=== PATIENT | male | born 1945 | race Hispanic/Latino ===

== ENCOUNTER 2017-02-03 08:34 | Inpatient (IN) | payer MEDICARE, OTHER ==
[2017-02-03 08:39] VITALS: BMI 29.9
--- NOTE | 2017-02-03 08:39 | ED PDOC ---
Arrival/HPI - General Time Seen by Provider: 02/03/17 08:38 Historian: Patient - History of Present Illness Narrative History of Present Illness (Text): 02/03/17 08:38 A 71 year old male, whose past medical history includes cardiac stent, 75%heart block, CHF on lasix, diabetes, hypertension and stage 5 kidney disease, brought [place] the emergency department [place] for chest pain over the past few days. Patient reports taking nitroglycerin, with mild relief until symptoms worsened causing a burning sensation. Patient was seen by physician on cruise ship who treated him with Aspirin, Plavix, Heparin and Nitro drip. Patient is currently asymptomatic and denies any pain. Lab report showed a Troponin of 0.03ng/ml, hemoglobin of 9.4 and creatinine of 7.5. It was also noted patients potassium level was slightly elevated to 5.6 which he states is normal to his baseline. Patient notes dyspnea on exertion but denies any fever, chills, nausea , vomiting, abdominal pain or any other complaints. 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 Time/Duration: Other (few days) Symptom Course: Worsening Quality: Other Context: Other Past Medical History - Provider Review Nursing Documentation Reviewed: Yes Family/Social History - Physician Review Nursing Documentation Reviewed: Yes Family/Social History: No Known Family HX Allergies/Home Meds Allergies/Adverse Reactions: Allergies doxycycline Allergy (Verified 02/03/17 09:01) ANAPHYLAXIS clarithromycin [From Biaxin] Adverse Reaction (Verified 02/03/17 10:25) RASH diclofenac Adverse Reaction (Verified 02/03/17 10:25) RASH diltiazem [From Dilacor XR] Adverse Reaction (Verified 02/03/17 10:25) RASH enalaprilat [From Vasotec] Adverse Reaction (Verified 02/03/17 10:25) RASH erythromycin base [From E-Mycin] Adverse Reaction (Verified 02/03/17 10:25) SWELLING felodipine [From Plendil] Adverse Reaction (Verified 02/03/17 10:25) RASH hydroxyzine Adverse Reaction (Verified 02/03/17 10:25) RASH polystyrene sulfonate [From Kayexalate] Adverse Reaction (Verified 02/03/17 10: 25) SWELLING pseudoephedrine [From Sudafed] Adverse Reaction (Verified 02/03/17 10:25) SWELLING sevelamer [From Renagel] Adverse Reaction (Verified 02/03/17 10:25) RASH tramadol [From Ultram] Adverse Reaction (Verified 02/03/17 10:25) RASH triamterene Adverse Reaction (Verified 02/03/17 10:25) RASH valsartan [From Diovan] Adverse Reaction (Verified 02/03/17 10:25) RASH Home Medications: Home Meds Medication Instructions Recorded Confirmed Allopurinol [Zyloprim] 100 mg PO DAILY 02/03/17 02/03/17 Cetirizine HCl [Allergy Relief] 10 mg PO DAILY 02/03/17 02/03/17 Cholecalciferol (Vitd3)/Vit K2 [D3 1,000 units PO DAILY 02/03/17 02/03/17 + K2 Dots 1,000 Units Tab] Clopidogrel [Plavix] 75 mg PO DAILY 02/03/17 02/03/17 Colchicine [Colcrys] 1 tab PO DAILY 02/03/17 02/03/17 Darbepoetin Jovani in Polysorbat 1 mcg IM ONCE 02/03/17 02/03/17 [Aranesp] DiphenhydrAMINE [Benadryl] 1 cap PO HS 02/03/17 02/03/17 Doxazosin [Cardura] 1 tab PO DAILY 02/03/17 02/03/17 Ferrous Sulfate [Feosol] 325 mg PO MWF 02/03/17 02/03/17 Fluticasone Propionate [Flonase] 2 spr NS DAILY 02/03/17 02/03/17 Furosemide [Lasix] 40 mg PO QOTHERDAY 02/03/17 02/03/17 Glimepiride [Amaryl] 0.5 mg PO DAILY 02/03/17 02/03/17 Hydralazine HCl [Hydralazine HCl] 1 tab PO TID 02/03/17 02/03/17 Isosorbide Mononitrate [Isosorbide 30 mg PO DAILY 02/03/17 02/03/17 Mononitrate ER] Lanthanum [Fosrenol] 500 mg PO BID 02/03/17 02/03/17 Levothyroxine Sodium [Levoxyl] 100 mcg PO DAILY 02/03/17 02/03/17 Metoprolol Succinate [Toprol XL] 25 mg PO DAILY 02/03/17 02/03/17 Nitroglycerin [Nitrostat] 1 tab SL Q5MIN PRN MDD x 3 doses 02/03/17 02/03/17 Pantoprazole Sodium [Protonix] 40 mg PO BID 02/03/17 02/03/17 Paricalcitol [Zemplar] 1 mcg PO QOTHERDAY 02/03/17 02/03/17 Polyethylene Glycol 3350 [Miralax] 17 gm PO DAILY 02/03/17 02/03/17 Pravastatin Sodium [Pravachol] 20 mg PO HS 02/03/17 02/03/17 Triamcinolone 0.1% [Triamcinolone 1 applic TOP PRN PRN 02/03/17 02/03/17 0.1% Cream] Vitamin E [Vitamin E] 1,000 units PO DAILY 02/03/17 02/03/17 cloNIDine [clonidine HCl] 0.2 mg PO Q6 02/03/17 02/03/17 Review of Systems - Physician Review All systems were reviewed & negative as marked: Yes - Review of Systems Constitutional: absent: Fevers, Night Sweats Cardiovascular: Chest Pain, ZAVALETA Gastrointestinal: absent: Abdominal Pain, Nausea, Vomiting Physical Exam Vital Signs Reviewed: Yes Vital Signs Temp Pulse Pulse Resp BP BP Pulse Ox 02/03/17 10:54 69 20 147/81 96 02/03/17 09:33 62 15 152/70 H 98 02/03/17 09:00 65 159/92 H 02/03/17 08:50 66 159/92 H 02/03/17 08:38 98.9 F 64 16 159/92 H 98 Temperature: Afebrile Blood Pressure: Hypertensive Pulse: Regular Respiratory Rate: Normal Appearance: Positive for: Well-Appearing, Non-Toxic, Comfortable Pain Distress: None Mental Status: Positive for: Alert and Oriented X 3 - Systems Exam Head: Present: Atraumatic, Normocephalic Pupils: Present: PERRL Extroacular Muscles: Present: EOMI Conjunctiva: Present: Normal Mouth: Present: Moist Mucous Membranes Neck: Present: Normal Range of Motion Respiratory/Chest: Present: Clear to Auscultation, Good Air Exchange. No: Respiratory Distress, Accessory Muscle Use Cardiovascular: Present: Regular Rate and Rhythm, Normal S1, S2. No: Murmurs Abdomen: Present: Normal Bowel Sounds. No: Tenderness, Distention, Peritoneal Signs Back: Present: Normal Inspection Upper Extremity: Present: NORMAL PULSES, Other (Left AV shunt, positive thrill and bruit). No: Cyanosis, Edema Lower Extremity: Present: Edema (trace edema bilaterally), NORMAL PULSES, Neurovascularly Intact. No: CALF TENDERNESS, Temperature Abnormalties Neurological: Present: GCS=15, CN II-XII Intact, Speech Normal Skin: Present: Warm, Dry, Normal Color. No: Rashes Psychiatric: Present: Alert, Oriented x 3, Normal Insight, Normal Concentration Medical Decision Making ED Course and Treatment: 02/03/17 08:38 Impression: A 71 year old male with chest pain, currently asymptomatic. On exam, trace lower extremity edema. Differential Diagnosis included but are not limited to: Unstable angina, rule out ACS/NTEMI Plan: -- Chest xray -- EKG -- Labs -- Urinalysis -- Nitroglycerin drip -- Reassess and disposition Progress Notes: EKG shows NSR at 72 BPM with T-wave inversions in lateral leads. Interpreted by me. 02/03/17 09:25 Patient reports he is allergic to kayexalate. Will order Dextrose and Insulin for his hyperkalemia. His baseline he states is 5.6-5.7. 02/03/17 11:00 Patient with elevated troponin. Did not present with CP to the ED but had CP last night and earlier this morning that improved with the nitro drip which he currently is on. Discussed case with Dr. Dahl who is covering for Dr. Wilkinson. He requested Dr. Mccoy for Cardiology and Dr. Trejo for Nephrology. Discussed case with Dr. Galdamez, [employer], who is covering for Dr. Trejo, will come to evaluate patient. He requested recommendation from Cardiology. Discussed case with Dr. Lu who is covering for Dr. Mccoy. He states that patient needs to be in the ICU and he will consult. He states he will also discuss the case with Dr. Galdamez. I reviewed medications already given and he agrees with plan. - Critical Care Critical Care Minutes: 45 minutes - Lab Interpretations Lab Results: 02/03/17 08:58 02/03/17 08:58 Lab Results 02/03/17 09:51: POC Glucose (mg/dL) 194 H 02/03/17 09:15: Urine Color Light yellow, Urine Appearance Clear, Urine pH 6.0, Ur Specific [place] 1.020, Urine Protein >=300 H, Urine Glucose (UA) 100 H, Urine Ketones Negative, Urine Blood Negative, Urine Nitrate Negative, Urine Bilirubin Negative, Urine Urobilinogen 0.2, Ur Leukocyte Esterase Negative, Urine RBC 0 - 2, Urine WBC 0 - 2, Ur Epithelial Cells 0 - 2, Urine Bacteria Trace 02/03/17 09:04: Blood Type O POSITIVE, Antibody Screen Negative, BBK History Checked No verified bt 02/03/17 08:58: PT 11.3, INR 1.05, APTT 39.1 H 02/03/17 08:58: Sodium 141, Potassium 5.8 H*, Chloride 109 H, Carbon Dioxide 18 L, Anion Gap 20, BUN 86 H, Creatinine 7.1 H, Est GFR ( Amer) 9, Est GFR ( Non-Af Amer) 8, Random Glucose 85, Calcium 9.3, Magnesium 1.6 L, Total Bilirubin 0.6, AST 33, ALT 38, Alkaline Phosphatase 74, Lactate Dehydrogenase 453, Total Creatine Kinase 156, Troponin I 0.21 H*, NT-Pro-B Natriuret Pep 39499 H, Total Protein 6.4, Albumin 3.5, Globulin 2.9, Albumin/Globulin Ratio 1.2 02/03/17 08:58: WBC 4.6, RBC 2.76 L, Hgb 8.8 L, Hct 26.0 L, MCV 94.2, MCH 31.9, MCHC 33.8, RDW 14.9 H, Plt Count 207, MPV 9.8, Gran % 65.5, Lymph % (Auto) 19.0 L, [place] % (Auto) 9.6 H, Eos % (Auto) 5.0, Baso % (Auto) 0.9, Gran # 3.01, Lymph # 0.9 L, [place] # 0.4, Eos # 0.2, Baso # 0.04 - RAD Interpretation Radiology Orders: 02/03/17 08:46 CHEST PORTABLE [RAD] Stat - Medication Orders Current Medication Orders: Nitroglycerin/Dextrose (Nitroglycerin 50 Mg/250 Ml D5w) 50 mg in 250 mls @ 1.98 mls/hr IV .Q24H PRN; Protocol; 6.6 MCG/MIN PRN Reason: pain Last Admin: 02/03/17 09:00 Dose: 1.98 mls/hr eMAR Start Stop Document 02/03/17 09:00 CNR (Rec: 02/03/17 09:14 CNR [id number]) Intravenous Solution Start Date 02/03/17 Start Time 09:00 MAR Pulse and Blood Pressure Document 02/03/17 09:00 CNR (Rec: 02/03/17 09:14 CNR [id number]) Pulse Pulse Rate (60-90) 65 Blood Pressure Blood Pressure (100/60-150/90) 159/92 Discontinued Medications Dextrose (Dextrose 50% Inj) 50 ml IVP STAT STA Stop: 02/03/17 09:27 Last Admin: 02/03/17 09:37 Dose: 50 ml IVP Administration Document 02/03/17 09:37 CNR (Rec: 02/03/17 09:40 CNR [id number]) Charges for Administration # of IVP Administrations 1 Insulin Human Regular (Humulin R) 10 units IVP STAT STA Stop: 02/03/17 09:27 Last Admin: 02/03/17 09:40 Dose: 10 units IVP Administration Document 02/03/17 09:40 CNR (Rec: 02/03/17 09:41 CNR [id number]) Charges for Administration # of IVP Administrations 1 - Scribe Statement The provider has reviewed the documentation as recorded by the Kenny Brannon Provider Scribe Attestation: All medical record entries made by the Scribe were at my direction and personally dictated by me. I have reviewed the chart and agree that the record accurately reflects my personal performance of the history, physical exam, medical decision making, and the department course for this patient. I have also personally directed, reviewed, and agree with the discharge instructions and disposition. Disposition/Present on Arrival - Present on Arrival Any Indicators Present on Arrival: No - Disposition Have Diagnosis and Disposition been Completed?: Yes Diagnosis: NSTEMI (non-ST elevated myocardial infarction), Renal failure Disposition: HOSPITALIZED Disposition Time: 11:05 Patient Plan: ICU Condition: CRITICAL
[2017-02-03 09:03] LABS: BASO # 0.04 K/mm3 (0.0-2.0); BASO % 0.9 % (0.0-3.0); EOS # 0.2 (0.0-0.7); GRAN # 3.01 (1.4-6.5); GRAN % 65.5 % (50.0-68.0); LYMPH # 0.9 (1.2-3.4); MEAN CELL VOLUME 94.2 fl (80.0-105.0); MEAN CORPUSCULAR HEMOGLOBIN 31.9 pg (25.0-35.0); MEAN CORPUSCULAR HGB CONC 33.8 g/dl (31.0-37.0); MEAN PLATELET VOLUME 9.8 fl (7.0-11.0); MONO # 0.4 (0.1-0.6); MONO % 9.6 % (1.0-6.0); RED CELL DISTRIBUTION WIDTH 14.9 % (11.5-14.5); WHITE BLOOD COUNT 4.6 10^3/ul (4.5-11.0)
[2017-02-03] MEDS ORDERED: Nitroglycerin 50mg in D5W 50 MG/250 ML BOTTLE IV PRN ×2 (09:08→16:25)
[2017-02-03 09:14] LABS: ALB/GLOB RATIO 1.2 (1.1-1.8); BILIRUBIN,TOTAL 0.6 mg/dL (0.2-1.3); CALCIUM 9.3 mg/dL (8.4-10.5); MAGNESIUM 1.6 mg/dL (1.7-2.2); TOTAL PROTEIN 6.4 g/dL (5.8-8.3)
[2017-02-03 09:18] LABS: POTASSIUM 5.8 mmol/L (3.6-5.0)
[2017-02-03 09:21] LABS: URINE BILIRUBIN NEGATIVE (NEGATIVE); URINE BLOOD NEGATIVE (NEGATIVE); URINE GLUCOSE (UA) 100 mg/dL (NEGATIVE); URINE KETONE NEGATIVE (NEGATIVE); URINE LEUKOCYTE ESTERASE NEGATIVE Leu/uL (NEGATIVE); URINE PROTEIN >=300 mg/dL (<30 mg/dL); URINE UROBILINOGEN 0.2 E.U./dL (<1 E.U./dL)
[2017-02-03 09:21] LABS: INR 1.05 (0.93-1.08); PARTIAL THROMBOPLASTIN TIME 39.1 Seconds (23.7-30.8)
[2017-02-03 09:22] LABS: URINE APPEARANCE CLEAR (CLEAR); URINE COLOR LIGHT YELLOW (YELLOW)
[2017-02-03] MEDS ORDERED: Dextrose 50% SYRINGE Inj (50 ml) IVP STA ×2 (09:26→11:32)
[2017-02-03] MEDS ORDERED: Insulin Regular 1 UNITS/0.01 ML ML IVP STA (09:26)
[2017-02-03 09:27] LABS: TROPONIN I 0.21 ng/mL
[2017-02-03 09:38] LABS: URINE BACTERIA TRACE (NEG); URINE EPITHELIAL CELLS 0 - 2 /hpf (0-5); URINE RBC 0 - 2 /hpf (0-2); URINE WBC 0 - 2 /hpf (0-6)
--- NOTE | 2017-02-03 10:22 | RAD ---
HISTORY: Chest pain. Portable study 09:00 COMPARISON: No prior. FINDINGS: LUNGS: No active pulmonary disease. PLEURA: No significant pleural effusion identified, no pneumothorax apparent. CARDIOVASCULAR: Cardiomegaly, mild CHF. OSSEOUS STRUCTURES: No significant abnormalities. VISUALIZED UPPER ABDOMEN: Normal. OTHER FINDINGS: None. IMPRESSION: Acute CHF. Concordant results with the preliminary interpretation rendered by the emergency department physician procedure.
[2017-02-03] MEDS ORDERED: Lidocaine 2% Inj (20ml) ONE (11:32)
[2017-02-03] MEDS ORDERED: Midazolam 2 MG/2 ML VIAL ONE (11:32)
[2017-02-03] MEDS ORDERED: Phenylephrine 10 mg/ml Inj ONE (11:32)
[2017-02-03] MEDS ORDERED: Iohexol 350mgl/ml 50 ML ONE (11:33)
[2017-02-03] MEDS ORDERED: Iodixanol 320 MG/ML 100 ML BOTTLE IV ONE (11:33)
[2017-02-03] MEDS ORDERED: Iodixanol 320 MG/ML 200 ML BOTTLE IV ONE (11:33)
[2017-02-03] MEDS ORDERED: Nitroglycerin 50mg in D5W 50 MG/250 ML BOTTLE IV ONE (11:33)
[2017-02-03] MEDS ORDERED: Morphine 2 mg/ml ISec ONE ×2 (12:18→12:28)
--- NOTE | 2017-02-03 12:50 | CP.PCM.CON ---
History of Present Illness - History of Present Illness History of Present Illness: Consult for ARF HPI: 71 yo M w/ pmh of CKD 5/ HTN/ DM / Anemia that presented for CP. He was apparently coming back from cruise when he was having chest discomfort associated w/ some naussea and diaphoresis. He was treated w/ asa , plavix and nitro and transferred to [facility]. In [facility] he was found to have dynamic EKG changes and a troponin. A code heart was ultimately called. He has a history of advanced CKD that has been treated medically. He denies any uremic type of symptoms. He states his K is always in the mid 5 range. He had a LUAF placed about 2 years ago but not used. ROS: a full detailed ROS is negative except as in my HPI Famhx: + HTN sochx: + smoke history, denies ivdu Past Patient History - Infectious Disease Hx of Infectious Diseases: None - Past Social History Smoking Status: Current Some Days Smoker - CARDIAC Hx Hypertension: Yes - RENAL Hx Chronic Kidney Disease: Yes (stage 5) - ENDOCRINE/METABOLIC Hx Diabetes Mellitus Type 2: Yes - HEMATOLOGICAL/ONCOLOGICAL Hx Anemia: Yes - PSYCHIATRIC Hx Substance Use: No - SURGICAL HISTORY Hx Cardiac Catheterization: Yes (2005) - ANESTHESIA Hx Anesthesia: No Hx Anesthesia Reactions: No Meds Allergies/Adverse Reactions: Allergies Allergy/AdvReac Type Severity Reaction Status Date / Time doxycycline Allergy ANAPHYLAXIS Verified 02/03/17 09:01 clarithromycin [From Biaxin] AdvReac RASH Verified 02/03/17 10:25 diclofenac AdvReac RASH Verified 02/03/17 10:25 diltiazem [From Dilacor XR] AdvReac RASH Verified 02/03/17 10:25 enalaprilat [From Vasotec] AdvReac RASH Verified 02/03/17 10:25 erythromycin base AdvReac SWELLING Verified 02/03/17 10:25 [From E-Mycin] felodipine [From Plendil] AdvReac RASH Verified 02/03/17 10:25 hydroxyzine AdvReac RASH Verified 02/03/17 10:25 polystyrene sulfonate AdvReac SWELLING Verified 02/03/17 10:25 [From Kayexalate] pseudoephedrine AdvReac SWELLING Verified 02/03/17 10:25 [From Sudafed] sevelamer [From Renagel] AdvReac RASH Verified 02/03/17 10:25 tramadol [From Ultram] AdvReac RASH Verified 02/03/17 10:25 triamterene AdvReac RASH Verified 02/03/17 10:25 valsartan [From Diovan] AdvReac RASH Verified 02/03/17 10:25 - Medications Medications: Current Medications Nitroglycerin/Dextrose (Nitroglycerin 50 Mg/250 Ml D5w) 50 mg in 250 mls @ 1.98 mls/hr IV .Q24H PRN; Protocol; 6.6 MCG/MIN PRN Reason: pain Last Admin: 02/03/17 09:00 Dose: 1.98 mls/hr Physical Exam - Constitutional Appears: No Acute Distress - Head Exam Head Exam: ATRAUMATIC - Eye Exam Eye Exam: Normal appearance - ENT Exam ENT Exam: Normal Exam - Neck Exam Neck exam: Positive for: Normal Inspection - Respiratory Exam Additional comments: dec bs at bases - Cardiovascular Exam Cardiovascular Exam: +S1, +S2 - GI/Abdominal Exam GI & Abdominal Exam: Normal Bowel Sounds - Extremities Exam Additional comments: 2+ edema - Neurological Exam Neurological exam: Alert, Oriented x3 - Psychiatric Exam Psychiatric exam: Normal Affect - Skin Skin Exam: Normal Color Results - Vital Signs Recent Vital Signs: Last Vital Signs Temp 98.9 F 02/03/17 08:38 Pulse 79 02/03/17 11:42 Resp 15 02/03/17 11:42 BP 155/69 H 02/03/17 11:42 Pulse Ox 98 02/03/17 11:42 - Labs Result Diagrams: 02/03/17 08:58 02/03/17 08:58 Labs: Laboratory Results - last 24 hr 02/03/17 02/03/17 02/03/17 08:58 08:58 08:58 WBC 4.6 RBC 2.76 L Hgb 8.8 L Hct 26.0 L MCV 94.2 MCH 31.9 MCHC 33.8 RDW 14.9 H Plt Count 207 MPV 9.8 Gran % 65.5 Lymph % (Auto) 19.0 L [place] % (Auto) 9.6 H Eos % (Auto) 5.0 Baso % (Auto) 0.9 Gran # 3.01 Lymph # 0.9 L [place] # 0.4 Eos # 0.2 Baso # 0.04 PT 11.3 INR 1.05 APTT 39.1 H Sodium 141 Potassium 5.8 H* Chloride 109 H Carbon Dioxide 18 L Anion Gap 20 BUN 86 H Creatinine 7.1 H Est GFR ( Amer) 9 Est GFR (Non-Af Amer) 8 POC Glucose (mg/dL) Random Glucose 85 Calcium 9.3 Magnesium 1.6 L Total Bilirubin 0.6 AST 33 ALT 38 Alkaline Phosphatase 74 Lactate Dehydrogenase 453 Total Creatine Kinase 156 Troponin I 0.21 H* NT-Pro-B Natriuret Pep 54538 H Total Protein 6.4 Albumin 3.5 Globulin 2.9 Albumin/Globulin Ratio 1.2 Urine Color Urine Appearance Urine pH Ur Specific [place] Urine Protein Urine Glucose (UA) Urine Ketones Urine Blood Urine Nitrate Urine Bilirubin Urine Urobilinogen Ur Leukocyte Esterase Urine RBC Urine WBC Ur Epithelial Cells Urine Bacteria Blood Type Blood Type Confirm Antibody Screen BBK History Checked 02/03/17 02/03/17 02/03/17 09:04 09:15 09:51 WBC RBC Hgb Hct MCV MCH MCHC RDW Plt Count MPV Gran % Lymph % (Auto) [place] % (Auto) Eos % (Auto) Baso % (Auto) Gran # Lymph # [place] # Eos # Baso # PT INR APTT Sodium Potassium Chloride Carbon Dioxide Anion Gap BUN Creatinine Est GFR ( Amer) Est GFR (Non-Af Amer) POC Glucose (mg/dL) 194 H Random Glucose Calcium Magnesium Total Bilirubin AST ALT Alkaline Phosphatase Lactate Dehydrogenase Total Creatine Kinase Troponin I NT-Pro-B Natriuret Pep Total Protein Albumin Globulin Albumin/Globulin Ratio Urine Color Light yellow Urine Appearance Clear Urine pH 6.0 Ur Specific [place] 1.020 Urine Protein >=300 H Urine Glucose (UA) 100 H Urine Ketones Negative Urine Blood Negative Urine Nitrate Negative Urine Bilirubin Negative Urine Urobilinogen 0.2 Ur Leukocyte Esterase Negative Urine RBC 0 - 2 Urine WBC 0 - 2 Ur Epithelial Cells 0 - 2 Urine Bacteria Trace Blood Type O POSITIVE Blood Type Confirm Antibody Screen Negative BBK History Checked No verified bt 02/03/17 02/03/17 02/03/17 11:01 11:15 11:24 WBC RBC Hgb Hct MCV MCH MCHC RDW Plt Count MPV Gran % Lymph % (Auto) [place] % (Auto) Eos % (Auto) Baso % (Auto) Gran # Lymph # [place] # Eos # Baso # PT INR APTT Sodium Potassium Chloride Carbon Dioxide Anion Gap BUN Creatinine Est GFR ( Amer) Est GFR (Non-Af Amer) POC Glucose (mg/dL) 316 H 175 H Random Glucose Calcium Magnesium Total Bilirubin AST ALT Alkaline Phosphatase Lactate Dehydrogenase Total Creatine Kinase Troponin I NT-Pro-B Natriuret Pep Total Protein Albumin Globulin Albumin/Globulin Ratio Urine Color Urine Appearance Urine pH Ur Specific [place] Urine Protein Urine Glucose (UA) Urine Ketones Urine Blood Urine Nitrate Urine Bilirubin Urine Urobilinogen Ur Leukocyte Esterase Urine RBC Urine WBC Ur Epithelial Cells Urine Bacteria Blood Type Blood Type Confirm O POSITIVE Antibody Screen BBK History Checked Assessment & Plan - Assessment and Plan (Free Text) Assessment: ARF/ Unstable Angina/ Hypertensive nephropathy/ Anemia of Renal Disease/ Secondary hyperparthyroid plan: Has known advanced Renal disease and dose not want to start HD. DIscussed risk / benefit of HD and that because he is going for cardiac cath and he already has some soft indications of HD (hyperk) we might need to start. He agrees that if absolutely necessary will start. Will attempt medical management in meantime as no uremic symptoms. Given lasix for volume overload. Will give oral bicarb for metabolic acidosis treat k medically for now resume home bp meds as tolerated will check phos and ipth recc start statin -some evidence suggests may reduce RACHEL will start oral mucomyst for RACHEL prevention given volume overload will not give IVF for RACHEL prevention discussed w/ cardiology, ER , and flat surfacer.
[2017-02-03 14:02] LABS: BASO # 0.02 K/mm3 (0.0-2.0); BASO % 0.3 % (0.0-3.0); EOS # 0.1 (0.0-0.7); EOS % 1.8 % (1.5-5.0); GRAN # 5.81 (1.4-6.5); GRAN % 80.8 % (50.0-68.0); LYMPH # 0.7 (1.2-3.4); LYMPH % 9.5 % (22.0-35.0); MEAN CELL VOLUME 94.4 fl (80.0-105.0); MEAN CORPUSCULAR HEMOGLOBIN 31.5 pg (25.0-35.0); MEAN CORPUSCULAR HGB CONC 33.3 g/dl (31.0-37.0); MEAN PLATELET VOLUME 10.4 fl (7.0-11.0); MONO # 0.6 (0.1-0.6); MONO % 7.6 % (1.0-6.0); RED CELL DISTRIBUTION WIDTH 14.9 % (11.5-14.5); WHITE BLOOD COUNT 7.2 10^3/ul (4.5-11.0)
[2017-02-03 14:06] LABS: INR 1.06 (0.93-1.08); PARTIAL THROMBOPLASTIN TIME 36.6 Seconds (23.7-30.8)
[2017-02-03 14:12] LABS: ALB/GLOB RATIO 1.2 (1.1-1.8); BILIRUBIN,TOTAL 0.6 mg/dL (0.2-1.3); CALCIUM 9.3 mg/dL (8.4-10.5); MAGNESIUM 1.5 mg/dL (1.7-2.2); PHOSPHOROUS 5.8 mg/dL (2.5-4.5); POTASSIUM 5.2 mmol/L (3.6-5.0); TOTAL PROTEIN 6.4 g/dL (5.8-8.3)
[2017-02-03] MEDS ORDERED: Pneumococcal 23-Valent Vaccine IM ONE (14:20)
[2017-02-03 14:21] LABS: IRON 74 ug/dL (45-180)
--- NOTE | 2017-02-03 14:59 | CP.PCM.PN ---
Subjective - Date & Time of Evaluation Date of Evaluation: 02/03/17 Time of Evaluation: 14:58 - Subjective Subjective: given large dye load and functional AVF d/w pt HD to see if reduces RACHEL which he agreed to. seen on HD uf 0.5 kg qb200 qd600 k2.0. Objective - Vital Signs/Intake and Output Vital Signs (last 24 hours): Temp Pulse Resp BP Pulse Ox 97.1 F L 79 15 150/62 98 02/03/17 13:57 02/03/17 13:57 02/03/17 13:57 02/03/17 13:57 02/03/17 11:42 - Medications Medications: Current Medications Acetylcysteine (Acetylcysteine 20%) 6 ml PO BID JUAN MANUEL Stop: 02/05/17 23:59 Nitroglycerin/Dextrose (Nitroglycerin 50 Mg/250 Ml D5w) 50 mg in 250 mls @ 1.98 mls/hr IV .Q24H PRN; Protocol; 6.6 MCG/MIN PRN Reason: pain Last Admin: 02/03/17 09:00 Dose: 1.98 mls/hr Sodium Bicarbonate (Sodium Bicarbonate Tab) 650 mg PO Q6 JUAN MANUEL - Labs Labs: 02/03/17 13:40 02/03/17 13:40 PT 11.4 Seconds (9.9-11.8) 02/03/17 13:40 INR 1.06 (0.93-1.08) 02/03/17 13:40 APTT 36.6 Seconds (23.7-30.8) H 02/03/17 13:40
[2017-02-03] MEDS ORDERED: Morphine 4 mg/ml ISec IVP PRN (15:11)
--- NOTE | 2017-02-03 15:29 | CON ---
DATE: 02/03/2017 [employer]ER AND DETONATOR CONSULT REQUESTING PHYSICIAN: Dr. Wilkinson. CHIEF COMPLAINT: The patient presented to the ER with primary complaints of chest pain, nauseousness and diaphoresis. HISTORY OF PRESENT ILLNESS: The patient is a 71-year-old male with a history of chronic kidney disease, hypertension, diabetes, anemia and noted to have a dialysis shunt placed, but he has not needed dialysis at this time. The patient was on a cruise ship and developed chest pain with nausea and diaphoresis and was brought to [facility] for evaluation and rule out myocardial infarction. On the ship, there were EKG changes and he did develop increased troponins. In the ER here at [facility] it was noted that EKG changes continued and troponins increased, code sarah was called. Dr. Acevedo came in and did cardiac catheterization. The catheterization did not reveal any significant lesions and it did reveal tricuspid regurg. Evaluation for pulmonary embolus will be done as well, the patient has gotten Lovenox and will be started on IV heparin. Renal has been consulted and with the dye given for the cardiac catheterization, the patient will get dialysis. PAST MEDICAL HISTORY: As above. ALLERGIES: HE HAS MULTIPLE ALLERGIES TO MANY MEDICATIONS, SOME BEING DOXYCYCLINE, , DILTIAZEM, VASOTEC, E-MYCIN, CLINDO, HYDRALAZINE, KAYEXALATE, PHENYLEPHRINE, RENAGEL, ULTRAM, TRIAMTERENE WELL DIOVAN. SOCIAL HISTORY: The patient is a current smoker. No ETOH abuse. No drug abuse. FAMILY HISTORY: Father for hypertension. REVIEW OF SYSTEMS: GENERAL: No fever or chills. HEENT: Head: Atraumatic. HEENT all negative. CARDIOVASCULAR: The patient presented with chest pain and nauseousness as well as diaphoresis. RESPIRATORY: No complaints of shortness of breath or cough. GASTROINTESTINAL: Did have some nauseousness. GENITOURINARY: All negative. NEUROPSYCHIATRIC: All negative. HEMATOLOGICAL: Negative. IMMUNOLOGICAL: Negative. ENDOCRINE: All negative. PHYSICAL EXAMINATION: VITAL SIGNS: His temperature is 98.9, pulse is 79, respirations are 15, and BP is 155/69. O2 saturation is 98% with 2 L of nasal cannula. HEENT: The patient's head is atraumatic and normocephalic. Eyes reactive to light. Ear, nose and throat seem to be within normal limits. NECK: Supple. No JVD. No thyroid enlargement. No lymph nodes. HEART: Regular rate and rhythm. Normal S1 and S2. LUNGS: Reveal mild decreased breath sounds at the bases. No rales or rhonchi. ABDOMEN: Soft, nontender. Normal bowel sounds. GENITALIA: Deferred. RECTAL: Deferred. MUSCULOSKELETAL: No joint deformities. EXTREMITIES: Reveal trace lower extremity edema. NEUROLOGICALLY: He seemed to be grossly intact. LABORATORY DATA: His white count is 4.6, hemoglobin is 8.8, hematocrit is 26.0 with platelets of 207,000. The patient's PT is 11.3, INR is 1.05, PTT is 39.1. Sodium is 141, potassium 5.8, chloride 109, CO2 of 18 with a BUN of 86, creatinine of 7.1. Note that the glucose is 175 and his latest troponin is 0.21 and BNP is 31,200. Chest x-ray reveals that there is pattern of congestive heart failure. IMPRESSION: This patient has unstable angina, rule out myocardial infarction. He has congestive heart failure, chronic kidney disease and after the dye load for the cardiac catheterization acute kidney disease as well. He has a history of hypertension, diabetes as well as anemia. The patient has a history of coronary artery disease. PLAN: We will continue with O2 via nasal cannula, continue with aggressive pulmonary toilet. The patient is on nitroglycerin drip and we will get dialysis as per renal. The patient has been given Lovenox and post dialysis, we will start a heparin drip. Because the patient was noted to have a tricuspid regurg on the catheterization, we cannot rule out pulmonary embolus, so heparin drip will be started and V/Q scan will be ordered. We will continue to monitor closely and treat aggressively along with the other consultants and the primary care doctor. Michael Alex MD
--- NOTE | 2017-02-03 16:34 | CP.PCM.HP ---
History of Present Illness - History of Present Illness History of Present Illness: A 71 year old male, with PMH of cardiac stent, CHF on lasix, diabetes, HTN, anemia and CKD Stage 5, [place] in from cruise [place] for chest pain which he had over the past few days. Patient reports taking nitroglycerin, with mild relief until symptoms worsened causing a burning sensation. Patient was seen by physician on cruise ship who treated him with Aspirin, Plavix, Heparin and a Nitro drip. In the ED patient had positive trops, and ischemic changes in EKG. Code heart was called. Dr. Franco was called and a cardiac cath was recommended. Dr. Victor was notified and patient was [place] [facility] [place] for [place] and evaluation. No stents were placed, patient then received emergent dialysis post cardic cath because of contrast use. Patient seen and examined at bedside currently asymptomatic and denies any pain. Patient denies any fever, chills, nausea, vomiting, abdominal pain, runny nose, sore throat or any other complaints. PMH: MH of cardiac cath, CHF on lasix, diabetes, HTN and CKD Stage 5 PSH: Cardiac stent 2005 Allergies: doxycycline ANAPHYLAXIS, clarithromycin RASH, diclofenac RASH diltiazem RASH enalaprila RASH erythromycin base SWELLING felodipine RASH hydroxyzine RASH polystyrene sulfonate SWELLING pseudoephedrine SWELLING sevelamer RASH tramadol RASH triamterene RASH valsartan RASH Medications: See MAR Family Hx: HTN Social: tobacco use some days, denies illicit drug use , denies alcohol use Present on Admission - Present on Admission Any Indicators Present on Admission: No Past Patient History - Infectious Disease Hx of Infectious Diseases: None - Past Social History Smoking Status: Never Smoked - CARDIAC Hx Angina: Yes Hx Hypercholesterolemia: Yes Hx Hypertension: Yes Hx Peripheral Edema: Yes (ble +1 pitting) - PULMONARY Hx Pneumonia: Yes (as a child) Hx Sleep Apnea: Yes Hx Tuberculosis: Yes ("a touch" as a child) Other/Comment: pt does not use cpap at home cannot tolerate - RENAL Hx Chronic Kidney Disease: Yes (stage 5) Hx Kidney Stones: Yes Other/Comment: ervin av fistula implanted 2 yrs ago never used - ENDOCRINE/METABOLIC Hx Diabetes Mellitus Type 2: Yes - HEMATOLOGICAL/ONCOLOGICAL Hx Anemia: Yes Hx Cancer: Yes (skin ca removed from forehead) Other/Comment: pt can't recall if skin ca was basal or squamous cell - INTEGUMENTARY Hx Dermatological Problems: Yes (forehead skin ca) Other/Comment: r groin dsg dry and intact - MUSCULOSKELETAL/RHEUMATOLOGICAL Hx Arthritis: Yes (left knee and fingers) Hx Falls: No Other/Comment: gel injections to left knee - GASTROINTESTINAL Hx Gastroesophageal Reflux: Yes - GENITOURINARY/GYNECOLOGICAL Hx Prostate Problems: Yes (elevated psa last checkup 3 mo ago) - PSYCHIATRIC Hx Substance Use: No - SURGICAL HISTORY Hx Cardiac Catheterization: Yes (2005 and 2 yrs ago) - ANESTHESIA Hx Anesthesia: No Hx Anesthesia Reactions: No Meds Allergies/Adverse Reactions: Allergies Allergy/AdvReac Type Severity Reaction Status Date / Time doxycycline Allergy ANAPHYLAXIS Verified 02/03/17 09:01 clarithromycin [From Biaxin] AdvReac RASH Verified 02/03/17 10:25 diclofenac AdvReac RASH Verified 02/03/17 10:25 diltiazem [From Dilacor XR] AdvReac RASH Verified 02/03/17 10:25 enalaprilat [From Vasotec] AdvReac RASH Verified 02/03/17 10:25 erythromycin base AdvReac SWELLING Verified 02/03/17 10:25 [From E-Mycin] felodipine [From Plendil] AdvReac RASH Verified 02/03/17 10:25 hydroxyzine AdvReac RASH Verified 02/03/17 10:25 polystyrene sulfonate AdvReac SWELLING Verified 02/03/17 10:25 [From Kayexalate] pseudoephedrine AdvReac SWELLING Verified 02/03/17 10:25 [From Sudafed] sevelamer [From Renagel] AdvReac RASH Verified 02/03/17 10:25 tramadol [From Ultram] AdvReac RASH Verified 02/03/17 10:25 triamterene AdvReac RASH Verified 02/03/17 10:25 valsartan [From Diovan] AdvReac RASH Verified 02/03/17 10:25 Physical Exam - Constitutional Appears: Non-toxic, No Acute Distress - Head Exam Head Exam: ATRAUMATIC, NORMAL INSPECTION, NORMOCEPHALIC - Eye Exam Eye Exam: EOMI, PERRL - Neck Exam Neck exam: Positive for: Normal Inspection - Respiratory Exam Respiratory Exam: NORMAL BREATHING PATTERN - Cardiovascular Exam Cardiovascular Exam: REGULAR RHYTHM, +S1, +S2 - GI/Abdominal Exam GI & Abdominal Exam: Normal Bowel Sounds. absent: Tenderness - Extremities Exam Extremities exam: Positive for: pedal pulses present Additional comments: Left arm: AV shunt, with positive thrill and bruit Lower extremities slight edema bilaterally - Back Exam Back exam: NORMAL INSPECTION - Neurological Exam Neurological exam: Alert, Oriented x3 - Psychiatric Exam Psychiatric exam: Normal Mood Results - Vital Signs Recent Vital Signs: Last Vital Signs Temp 97.1 F L 02/03/17 13:57 Pulse 79 02/03/17 13:57 Resp 15 02/03/17 13:57 BP 150/62 02/03/17 13:57 Pulse Ox 98 02/03/17 11:42 - Labs Result Diagrams: 02/03/17 13:40 02/03/17 13:40 Labs: Laboratory Results - last 24 hr 02/03/17 02/03/17 02/03/17 13:40 13:40 13:40 WBC 7.2 D RBC 2.86 L Hgb 9.0 L Hct 27.0 L MCV 94.4 MCH 31.5 MCHC 33.3 RDW 14.9 H Plt Count 219 MPV 10.4 Gran % 80.8 H Lymph % (Auto) 9.5 L Hartley % (Auto) 7.6 H Eos % (Auto) 1.8 Baso % (Auto) 0.3 Gran # 5.81 Lymph # 0.7 L Hartley # 0.6 Eos # 0.1 Baso # 0.02 PT INR APTT Sodium 140 Potassium 5.2 H Chloride 108 H Carbon Dioxide 16 L Anion Gap 21 H BUN 80 H Creatinine 7.3 H Est GFR ( Amer) 9 Est GFR (Non-Af Amer) 7 Random Glucose 95 Calcium 9.3 Phosphorus 5.8 H Magnesium 1.5 L Iron 74 TIBC 249 L % Saturation 30 Total Bilirubin 0.6 AST 32 ALT 34 Alkaline Phosphatase 82 Total Protein 6.4 Albumin 3.5 Globulin 3.0 Albumin/Globulin Ratio 1.2 02/03/17 13:40 WBC RBC Hgb Hct MCV MCH MCHC RDW Plt Count MPV Gran % Lymph % (Auto) Hartley % (Auto) Eos % (Auto) Baso % (Auto) Gran # Lymph # Hartley # Eos # Baso # PT 11.4 INR 1.06 APTT 36.6 H Sodium Potassium Chloride Carbon Dioxide Anion Gap BUN Creatinine Est GFR ( Amer) Est GFR (Non-Af Amer) Random Glucose Calcium Phosphorus Magnesium Iron TIBC % Saturation Total Bilirubin AST ALT Alkaline Phosphatase Total Protein Albumin Globulin Albumin/Globulin Ratio Assessment & Plan - Assessment and Plan (Free Text) Assessment: A 71 year old male, with PMH of cardiac stent ,CHF on lasix, diabetes, HTN, anemia and CKD Stage 5, brought in from cruise ship for chest pain which he had over the past few days. In the ED patient had positive trops, and ischemic changes in EKG. Code heart was called. Dr. Franco was called and a cardiac cath was recommended. Dr. Victor was notified and patient was [place] [facility] for treatment and evaluation. Patient sp cardiac cath and receiving HD for contrast use. He is being monitored. Plan: 1. Chest Pain- STEMI -Chest Xray showed acute CHF -EKG ordered, showed ischemic changes in leads AVL, and precordial leads, pending official read -first trop 0.21 -given morphine, nitro, metoprolol -currently on nitro drip -on lipitor 10 -CMP ordered, magnesium ,phosphorus ordered - emergent cardiac cath procedure done, no occlusions found, patient being monitored in ICU 2. CKD Stage 5 -K was 5.8 on admission, currently 5.2 , continue to monitor -receiving emergent HD post cardiac cath procedure due to contrast use -given acetylcysteine -metabolic acidosis, given oral bicarb -follow CMP and monitor -continue home meds 3. HTN -BP 144/69 -continue to monitor -patient started on hydralazine -continue home medications 4. CHF -Echo unknown -BNP 14789 -continue home meds 5. Anemia-chronic -Hgb: 8.8 -ferritin level ordered -continue to monitor 6. DM -hold oral hypoglycemics -started on insulin sliding scale -Hemoglobin A1C ordered 7. GI/DVT prophylaxis -heparin -protonix
[2017-02-03] MEDS ORDERED: DARBEPOETIN ALFA IN POLYSORBAT IM SCH (17:15)
[2017-02-03] MEDS: Acetylcysteine 20% Inhal Soln (4ml) PO SCH (17:45)
[2017-02-03] MEDS: Insulin Lispro (humaLOG) LOW Coverage SC SCH ×2 (17:47→22:33)
[2017-02-03] MEDS: Heparin 25,000units in D5W 25,000 UNITS/250 ML BAG IV SCH (17:59)
[2017-02-03] MEDS ORDERED: HYDRALAZINE HCL PO SCH (18:00)
--- NOTE | 2017-02-03 18:58 | CARDCATH ---
PROCEDURE DATE: 02/03/2017 PROCEDURES: 1. Selective left and right coronary angiography. 2. Ascending thoracic aortography. 3. Left ventriculography. 4. Right femoral arteriography. 5. Mynx deployment. HISTORY: This is a 71-year-old male with known coronary artery disease and chronic renal failure, who was brought to the emergency room from the cruise ship after having acute coronary syndrome symptoms while there. His troponin was mildly elevated and cardiac catheterization was advised. In the emergency room, his electrocardiogram appeared to have normalized; however, he developed worsening chest pain with ST depression in anterolateral leads. Urgent catheterization was advised. INDICATIONS: Apparent non-ST segment elevation myocardial infarction. FINDINGS: Hemodynamics: The aortic pressure was 180/70 with left ventricular pressure of 180/35. CORONARY ANATOMY: 1. The left mainstem appeared normal. 2. The left anterior ascending artery had evidence of rxba-ri-abnduyrc calcification proximally and a stent was present in the early mid segment of the vessel. This appeared to have evidence of 30% to 40% in stent restenosis. No thrombus was visualized. The first diagonal branch was of moderate size and had mild proximal tapering. After take off of the second diagonal branch, there was 30% stenosis noted. The distal vessel was fairly large and wrapped around the apex. 3. The left circumflex artery was large and dominant. This had no evidence of significant disease. The distal vessels appeared to be normal in caliber as well. 4. The right coronary artery was small, non dominant and had 40% proximal stenosis. Of note, visualization of the coronary arteries were somewhat difficult with a JL4 diagnostic catheter. This was exchanged for JL4.5 catheter as well as Amplatz AL2 catheter. Ultimately, a 4.0 EBU guide catheter was utilized to optimize visualization and to be certain to not miss any clear coronary occlusion or loss of side branch. LEFT VENTRICULOGRAPHY: A hand injection was performed in the left ventricle revealing evidence of distal anterolateral apical hypokinesis. The overall ejection fraction appeared [id number]-bx-[id number] depressed. There was a 10-mm aortic valve gradient noted on catheter pullback. THORACIC ARTERIOGRAPHY: A pigtail catcher was positioned and a proximal aortogram was performed. There was no clear evidence of dissection seen. The proximal aorta appeared mildly dilated. RIGHT FEMORAL ARTERIOGRAPHY: 1. A right femoral arteriogram was performed in the DEL [place] projection. This revealed no evidence of significant disease. The puncture site appeared to be in the proximal profunda branch and this was closed with deployment of Mynx device. 2. The patient continued to have intermittent chest pain throughout the procedure. CONCLUSION: 1. Xjph-up-jaydmnvz LAD and stent restenosis. No evidence of high-grade coronary artery disease. 2. Xnzk-tb-yzmmaucg reduced LV systolic function. 3. No obvious reason for current level of chest pain based upon coronary artery disease. 4. Of note, an echocardiogram was obtained in the woven label designer to exclude any evidence of significant pericardial effusion of which none was seen. The right ventricular systolic pressure appeared elevated. RECOMMENDATIONS: The patient will be admitted through the ICU of her further treatment as the severe renal insufficiency dialysis will likely be necessary. Evaluation for a pulmonary embolus has been recommended as well. Serial cardiac enzymes will be obtained. Yan Acevedo MD
--- NOTE | 2017-02-03 22:33 | CARD ---
APPROVED REPORT EKG Measurement Heart [id number] MA [id number] <Conclusion> Normal sinus rhythm T wave abnormality, consider lateral ischemia Abnormal ECG
[2017-02-03] MEDS ORDERED: Magnesium Sulfate 2 GM in Sodium Chloride 0.9% 100 ML IVPB ONE (22:41)
--- NOTE | 2017-02-03 23:04 | CON ---
DATE: CARDIOLOGY CONSULT REASON FOR CONSULTATION: Chest pain. HISTORY OF PRESENT ILLNESS: The patient is A 71-year-old white male with history of coronary artery disease, status post coronary stenting in 2005 and history of advanced renal insufficiency, has an AV fistula placed. The patient was in a cruise ship that was about to land in [facility] and has been experiencing retrosternal chest pain on the cruise ship while going upstairs; however, the last day, the patient who was admitted into the emergency department of the cruise ship with chest pain. Cardiac enzymes were borderline elevated and the patient was brought in after arrival of the cruise ship to [facility] to emergency room at [facility] with an ambulance. Upon the arrival, the patient was chest pain free. Repeat EKG revealed improvement of the previously noted lateral ischemic EKG changes that were reported on an EKG on the cruise ship. After my own evaluation of the patient in terms of history taking, physical examination and reviewing of all the lab results and EKG, the patient did develop chest pain that is typical, retrosternal and repeat EKG was performed, which revealed [address] depression. At this point, I did active Code Heart. SOCIAL HISTORY: The patient is nonsmoker. MEDICATIONS: The patient is currently on IV nitroglycerin. He did receive aspirin, Plavix, and 100 mg subcutaneous Lovenox in the cruise ship last night. HOME MEDICATIONS: Include pravastatin, Toprol XL, Imdur, vitamin D3, hydralazine, allopurinol, Protonix, Nitrostat p.r.n, Synthroid, Cardura, colchicine, Flonase, Amaryl, clonidine, Plavix, Lasix, ferrous sulfate, Zemplar, vitamin E. REVIEW OF SYSTEMS: The patient denies nausea or vomiting. He feels hot and as I mentioned earlier in the history, following completion of my evaluation, the patient started to experience persistent retrosternal chest pain. PHYSICAL EXAMINATION: GENERAL: The patient is an elderly male who does not appear to be in acute distress. VITAL SIGNS: Blood pressure 155/69, heart rate 79, respirations 20, temperature 98.9. HEENT: Pale conjunctivae. CHEST: Clear. HEART: S1 and S2 regular. No gallop or rub. ABDOMEN: Soft. EXTREMITIES: No edema. EKG: Reviewed of the EKG done the cruise ship revealed subtle lateral ST depression. The one that was done in the emergency room revealed sinus rhythm, however, with lateral Q-wave flattening. Subsequent to my evaluation, the patient developed [address] segment depression and had persistent chest pain. LABORATORY DATA: Hemoglobin and hematocrit 8.8 and 26, white count and platelet count within normal limits. SMA-7: Sodium 141, potassium 5.8, chloride 109, CO2 of 18, glucose 85, BUN 86, and creatinine 7.1. Troponin 0.21. ProBNP is 31,200. Chest x-ray revealed borderline cardiomegaly, in ojhc-si-wxxneudn CHF. ASSESSMENT: 1. Acute xvf-FR-rtydcekmy myocardial infarction with persistent chest pain despite *------* infusion. 2. Advanced renal insufficiency. 3. Hyperkalemia. 4. Anemia. RECOMMENDATIONS: Case was discussed at length with the patient, his family, ER physician, machine attendant as well as the msw. The patient was initiated intervenous heparin. The patient has refused dextrose 50 as well as regular saline for his hyperkalemia. The patient is reported to be ALLERGIC TO KAYEXALATE. Code Heart was activated and Dr. Acevedo was informed about the case. The patient would require hemodialysis as soon as possible. The case was discussed at length with the patient's family who requested transfer of the patient to [facility] and I did explain that the patient is in no condition to be transferred outside the [facility]. Gaudencio Skelton MD
[2017-02-04] MEDS: Morphine 4 mg/ml ISec IVP PRN ×2 (03:44→13:26)
[2017-02-04] MEDS ORDERED: Morphine 4 mg/ml ISec IVP STA ×2 (05:23→06:25)
--- NOTE | 2017-02-04 05:34 | CARD ---
APPROVED REPORT EXAM: Two-dimensional and M-mode echocardiogram with Doppler and color Doppler. INDICATION Non STEMI CODE HEART Aortic Valve AoV Peak Qtvsaohs044.0cm/[place] Peak GR.24mmHg Mitral Valve E/A ratio0.0 TDI E/Lateral E'0.0E/Medial E'0.0 Tricuspid Valve TR Peak [id number] [id number] Peak Gr.62mmHg [id number] LEFT VENTRICLE The left ventricle is normal size. There is normal left ventricular wall thickness. The systolic function is moderately impaired. There is moderate to severe hypokinesis in the apical septal and anterior wall. RIGHT VENTRICLE The right ventricle is mildly dilated. ATRIA The left atrium is mildly dilated. The right atrium is mildly dilated. The interatrial septum is intact with no evidence for an atrial septal defect. AORTIC VALVE The aortic valve is mildly sclerotic. No aortic regurgitation is present. There is no aortic valvular stenosis. MITRAL VALVE Mitral annular calcification is mild. Mitral regurgitation is mild. TRICUSPID VALVE The tricuspid valve is normal in structure. There is mild to moderate tricuspid regurgitation. There is moderate pulmonary hypertension. PULMONIC VALVE The pulmonary valve is normal in structure. GREAT VESSELS The aortic root is normal in size. The IVC is normal in size and collapses >50% with inspiration. PERICARDIAL EFFUSION There is no pleural effusion. There is no pericardial effusion. <Conclusion> Technically limited study. Biatrial enlargement. Moderate LV systolic dysfunction with anterior and apical septal hypokinesis. Moderate TR. Mild MR. No effusion seen.
[2017-02-04 05:58] LABS: BASO # 0.03 K/mm3 (0.0-2.0); BASO % 0.4 % (0.0-3.0); EOS # 0.3 (0.0-0.7); EOS % 4.1 % (1.5-5.0); GRAN # 5.2 (1.4-6.5); GRAN % 71.9 % (50.0-68.0); LYMPH % 13.1 % (22.0-35.0); MEAN CELL VOLUME 93.5 fl (80.0-105.0); MEAN CORPUSCULAR HEMOGLOBIN 31.3 pg (25.0-35.0); MEAN CORPUSCULAR HGB CONC 33.5 g/dl (31.0-37.0); MONO # 0.8 (0.1-0.6); MONO % 10.5 % (1.0-6.0); RED CELL DISTRIBUTION WIDTH 14.6 % (11.5-14.5); WHITE BLOOD COUNT 7.2 10^3/ul (4.5-11.0)
[2017-02-04 06:10] LABS: INR 1.04 (0.93-1.08); PARTIAL THROMBOPLASTIN TIME 44.8 Seconds (23.7-30.8)
[2017-02-04 06:12] LABS: ALB/GLOB RATIO 1.2 (1.1-1.8); BILIRUBIN,TOTAL 0.7 mg/dL (0.2-1.3); MAGNESIUM 1.8 mg/dL (1.7-2.2); PHOSPHOROUS 5.1 mg/dL (2.5-4.5); POTASSIUM 4.7 mmol/L (3.6-5.0); TOTAL PROTEIN 6.1 g/dL (5.8-8.3)
--- NOTE | 2017-02-04 08:47 | CON ---
INTERVENTIONAL CARDIOLOGY CONSULTATION DATE: REQUESTING PHYSICIAN: Yobany Wilkinson DO REASON FOR CONSULTATION: Chest pain and abnormal electrocardiogram. HISTORY OF PRESENT ILLNESS: This is a 71-year-old male with known coronary artery disease, status post previous PCI who has developed severe chest discomfort on a cruise ship recently. Upon distant parking, he had recurrent chest pain, he was brought to the emergency room. Initial EKG on the cruise ship showed ST depressions in the anterolateral leads, which subsequently improved. Followup electrocardiogram with chest pain today reveals dynamic ST-T changes. Despite IV nitroglycerine and antianginal therapy, he was having persistent rest pain radiating to his shoulders and arms. Emergency catheterization was requested. PAST MEDICAL HISTORY: Notable for the problems mentioned above. He currently underwent a PCI in 2005. He does have chronic renal failure and had a dialysis access placed 2 years ago. However, he has not undergone dialysis yet. His creatinine was 7 today. He has a history of diabetes and hypertension as well. He reported he had congestive heart failure In the past. MEDICATIONS: His medications at home included Amaryl, Aranesp, Benadryl, Cardura, clonidine, colchicine, Flonase, hydralazine, Imdur, Lasix, Synthroid, Plavix, Pravachol, Protonix, Toprol XL, and allopurinol. ALLERGIES: HE REPORTED HE HAS HAD REACTION TO DOXYCYCLINE, ERYTHROMYCIN, DILTIAZEM, ENALAPRILAT, AND SEVERAL OTHER MEDICATIONS. SOCIAL HISTORY: He smokes occasionally, denies alcohol use. FAMILY HISTORY: Both parents are from age-related illness. REVIEW OF SYSTEMS: A 10-point review of systems is otherwise unremarkable. PHYSICAL EXAMINATION GENERAL: He is a middle aged man and appears uncomfortable due to his chest pain. VITAL SIGNS: His blood pressure is 180/90 with a pulse of 100, and respirations are 26. He is afebrile. HEENT: Normocephalic. NECK: JVD is present, 6 degrees. CHEST: Bibasilar rales. HEART: PMI displaced laterally with a systolic murmur at the lower left sternal border. ABDOMEN: Soft and nontender with normoactive bowel sounds. EXTREMITIES: A functional fistula is noted in his left upper extremity. No edema is noted. PSYCHIATRIC: Normal mood and affect. NEUROLOGIC: Alert and oriented x3. No gross motor or sensory deficits are appreciable. DIAGNOSTIC DATA: Electrocardiogram reveals sinus rhythm with LVH and ST depressions in the anterolateral leads. Chest x-ray reveals normal cardiac silhouette with pulmonary vascular congestion. White count is 4.6, hemoglobin and hematocrit 8.8 and 26.0 with a platelet count of 207,000. PT and PTT 11.3 and 39.1. Potassium 5.2. BUN and creatinine 80 and 7.3. [place]rop[place] 0[place] [address]. IMPRESSION: 1. Acute coronary syndrome with resting angina despite standard medical therapy,given all the above urgent catheterization is certainly appropriate to determine the underlying cause of his symptoms. PCI of any culprit lesion will be planned. The risks and benefits have been discussed with the patient in detail. He is agreeable to proceed. Further recommendations will be based upon those results. Yan Acevedo MD
[2017-02-04] MEDS: Acetylcysteine 20% Inhal Soln (4ml) PO SCH ×2 (09:29→18:20)
[2017-02-04] MEDS: Metoprolol Succinate 25 mg XL Tab PO SCH (09:30)
[2017-02-04] MEDS: Levothyroxine 100 MCG TAB PO SCH (09:30)
[2017-02-04] MEDS: Insulin Lispro (humaLOG) LOW Coverage SC SCH ×4 (09:31→22:15)
[2017-02-04] MEDS ORDERED: DOXAZOSIN 8 MG PO SCH (10:00)
[2017-02-04] MEDS ORDERED: DOXAZOSIN PO SCH (10:00)
--- NOTE | 2017-02-04 10:55 | PN ---
DATE: 02/04/2017 [employer] SPECIALIST NOTE SUBJECTIVE: The patient is resting in bed with O2 via nasal cannula. He is still on nitroglycerin. Now the patient overnight complaints of pain in the left shoulder and states even with the nitro it has not relieved. He has been given Tylenol and that has given him some relief. No fever or chills. No nausea or vomiting. No abdominal pain. No severe chest pain. No increased respiratory distress. PHYSICAL EXAMINATION: VITAL SIGNS: Note that his temperature is 98.7, his pulse is 108, respirations are 19, and BP is 162/77. SKIN: Warm and dry. HEENT: Head is atraumatic and normocephalic. Eyes are reactive to light. Ears, nose and throat seemed to be within normal limits. NECK: Supple. No JVD. No thyroid enlargement. No lymph nodes. HEART: Has a regular rate and rhythm. Normal S1, S2. LUNGS: Reveal good breath sounds bilaterally. ABDOMEN: Soft and nontender. Normal bowel sounds. No organomegaly noted. GENITALIA: Deferred. RECTAL: Deferred. MUSCULOSKELETAL: No joint deformities. EXTREMITIES: Reveal trace lower extremity edema. NEUROLOGIC: He seems to be grossly intact. LABORATORY DATA: As far as his laboratories are concerned, his white count is 7.2, hemoglobin is 8.7, hematocrit 26.0 with platelets of 210,000. His sodium is 139, potassium 4.7, chloride 103, CO2 of 23 with a BUN of 60, creatinine of 5.8, and a glucose of 134. IMPRESSION: The patient has unstable angina. We will continue to rule out myocardial infarction. The patient has mild congestive heart failure with a chronic and acute kidney disease. He has a history of hypertension, diabetes, anemia, and coronary artery disease. PLAN: We will continue the nitro drip. Continue to follow apparel manufacture instructor's recommendations. The patient is on O2 via nasal cannula. We will continue with pulmonary toilet and the patient is scheduled for V/Q scan today. We will continue with Tylenol for shoulder pain and we will monitor his PTT closely. We will continue to treat aggressively along with the other consultants and a primary doctor. Michael Alex MD
--- NOTE | 2017-02-04 12:30 | CP.PCM.PN ---
Addendum entered and electronically signed by Douglas Sanches DO 02/04/17 17:57: continue bicarb per nephro, monitor BMP to evaluate if HD needed again, not needed today Original Note: <Douglas Sanches - Last Filed: 02/04/17 17:55> Subjective - Date & Time of Evaluation Date of Evaluation: 02/04/17 Time of Evaluation: 07:00 - Subjective Subjective: Patient seen and evaluated bedside in the ICU. Patient appeared to be weak and lethargic. He states he doesn not have any chest pain, but says he has pain in his left arm and part of his face on the left. He denies SOB, fevers, chills, nausea, vomiting or any other complaints. Objective - Vital Signs/Intake and Output Vital Signs (last 24 hours): Temp Pulse Resp BP Pulse Ox 98.7 F 108 H 19 162/77 H 94 L 02/04/17 05:06 02/04/17 06:40 02/04/17 06:40 02/04/17 06:00 02/04/17 06:40 Intake and Output: 02/04/17 02/04/17 06:59 18:59 Intake Total 402 156 Output Total 900 Balance -498 156 - Medications Medications: Current Medications Acetaminophen (Tylenol 325mg Tab) 650 mg PO Q6H PRN PRN Reason: Headache Last Admin: 02/04/17 05:06 Dose: 650 mg Acetylcysteine (Acetylcysteine 20%) 6 ml PO BID [facility] Stop: 02/05/17 23:59 Last Admin: 02/04/17 09:29 Dose: 6 ml Allopurinol (Zyloprim) 100 mg PO DAILY [facility] Last Admin: 02/04/17 09:30 Dose: 100 mg Atorvastatin Calcium (Lipitor) 10 mg PO HS [facility] Clonidine HCl (Catapres) 0.2 mg PO BID PRN PRN Reason: Systolic Blood Pressure Colchicine (Colocrys) 0.6 mg PO DAILY [facility] Last Admin: 02/04/17 09:30 Dose: 0.6 mg Darbepoetin Jovain (Aranesp) 60 mcg SC Q14D [facility] Diphenhydramine HCl (Benadryl) 25 mg PO HS PRN PRN Reason: Insomnia Last Admin: 02/03/17 22:39 Dose: 25 mg Doxazosin Mesylate (Cardura) 8 mg PO DAILY [facility] Last Admin: 02/04/17 09:29 Dose: 8 mg Ferrous Sulfate (Feosol) 324 mg PO MWF [facility] Fluticasone Propionate (Flonase) 0 actuation NS DAILY [facility] Hydralazine HCl (Apresoline) 100 mg PO TID [facility] Last Admin: 02/04/17 09:30 Dose: 100 mg Heparin Sodium/Dextrose (Heparin 25,000 Units/250ml In D5w) 25,000 units in 250 mls @ 11.703 mls/hr IV .[id number] [facility]; 12 UNITS/KG/HR PRN Reason: Protocol Last Titration: 02/04/17 08:03 Dose: 14 units/kg/hr, 13.653 mls/hr Insulin Human Lispro (Humalog Low) 0 units SC ACHS [facility] PRN Reason: Protocol Last Admin: 02/04/17 09:31 Dose: Not Given Levothyroxine Sodium (Synthroid) 100 mcg PO DAILY [facility] Last Admin: 02/04/17 09:30 Dose: 100 mcg Metoprolol Succinate (Toprol Xl) 25 mg PO DAILY [facility] Last Admin: 02/04/17 09:30 Dose: 25 mg Morphine Sulfate (Morphine) 2 mg IVP Q4H PRN PRN Reason: Pain, moderate (4-7) Last Admin: 02/04/17 03:44 Dose: 2 mg Non-Formulary Medication (Cetirizine Hcl [Allergy Relief]) 10 mg PO DAILY [facility] Non-Formulary Medication (Cholecalciferol (Vitd3)/Vit K2 [D3 + K2 Dots 1,000 Units Tab]) 1,000 units PO DAILY [facility] Pantoprazole Sodium (Protonix Ec Tab) 40 mg PO 0600 [facility] Sodium Bicarbonate (Sodium Bicarbonate Tab) 650 mg PO Q6 [facility] Last Admin: 02/04/17 05:43 Dose: 650 mg - Labs Labs: 02/04/17 05:00 02/04/17 05:00 PT 11.2 Seconds (9.9-11.8) 02/04/17 05:00 INR 1.04 (0.93-1.08) 02/04/17 05:00 APTT 44.8 Seconds (23.7-30.8) H 02/04/17 05:00 - Head Exam Head Exam: ATRAUMATIC, NORMAL INSPECTION, NORMOCEPHALIC Additional comments: positive for pain on left side of head/face - Eye Exam Eye Exam: EOMI - ENT Exam ENT Exam: Mucous Membranes Moist - Neck Exam Neck Exam: Normal Inspection - Respiratory Exam Respiratory Exam: Clear to Ausculation Bilateral, NORMAL BREATHING PATTERN - Cardiovascular Exam Cardiovascular Exam: REGULAR RHYTHM, +S1, +S2 - GI/Abdominal Exam GI & Abdominal Exam: Normal Bowel Sounds - Extremities Exam Additional comments: patient states he has pain in left upper arm - Neurological Exam Neurological Exam: Awake, Oriented x3 - Psychiatric Exam Psychiatric exam: Flat Affect - Skin Skin Exam: Normal Color Assessment and Plan - Assessment and Plan (Free Text) Assessment: 71 M with PMH of with PMH of cardiac stent, CHF on lasix, diabetes, HTN, anemia and CKD Stage 5, SP cardiac cath without stents. Patient currently being monitored in the ICU. Plan: 1. Chest Pain- STEMI -Chest Xray showed acute CHF -EKG ordered, showed ischemic changes in leads AVL, and precordial leads, pending official read -elevated toponins -given morphine, nitro, metoprolol -on lipitor 10 -CMP repeated and being monitored - emergent cardiac cath procedure done, no occlusions found, patient being monitored in ICU -V/Q scan performed 2. CKD Stage 5 -K was 5.8 on admission, currently 4.7 , continue to monitor -received emergent HD post cardiac cath procedure due to contrast use -given acetylcysteine -metabolic acidosis, given oral bicarb -follow CMP and monitor -continue home meds 3. HTN -BP 159/71 -continue to monitor -continue hydralazine TID per cardiology -continue home medications 4. CHF -Echo shows biatrial enlargement, moderatae LV systolid dysfunction with anterior and apical septal hypookinesis. Moderate TR, Mild MR. no effusion seen. -continue home meds 5. Anemia-chronic -Hgb: 8.7 -iron 74, TIBC 249 -continue to monitor 6. DM -hold oral hypoglycemics -continue insulin sliding scale -Hemoglobin A1C ordered 7. GI/DVT prophylaxis -heparin -protonix <Barry Foreman - Last Filed: 02/04/17 18:21> Objective - Vital Signs/Intake and Output Vital Signs (last 24 hours): Temp Pulse Resp BP Pulse Ox 97.9 F 122 H 25 H 159/71 H 92 L 02/04/17 14:30 02/04/17 14:20 02/04/17 14:20 02/04/17 14:00 02/04/17 14:20 Intake and Output: 02/04/17 02/04/17 06:59 18:59 Intake Total 402 250 Output Total 900 Balance -498 250 - Medications Medications: Current Medications Acetaminophen (Tylenol 325mg Tab) 650 mg PO Q6H PRN PRN Reason: Headache Last Admin: 02/04/17 05:06 Dose: 650 mg Acetylcysteine (Acetylcysteine 20%) 6 ml PO BID [facility] Stop: 02/05/17 23:59 Last Admin: 02/04/17 09:29 Dose: 6 ml Allopurinol (Zyloprim) 100 mg PO DAILY [facility] Last Admin: 02/04/17 09:30 Dose: 100 mg Atorvastatin Calcium (Lipitor) 10 mg PO HS [facility] Clonidine HCl (Catapres) 0.2 mg PO BID PRN PRN Reason: Systolic Blood Pressure Last Admin: 02/04/17 13:25 Dose: 0.2 mg Darbepoetin Jovani (Aranesp) 60 mcg SC SAT [facility] Diphenhydramine HCl (Benadryl) 25 mg PO HS PRN PRN Reason: Insomnia Last Admin: 02/03/17 22:39 Dose: 25 mg Doxazosin Mesylate (Cardura) 8 mg PO DAILY [facility] Last Admin: 02/04/17 09:29 Dose: 8 mg Ferrous Sulfate (Feosol) 324 mg PO MWF [facility] Fluticasone Propionate (Flonase) 0 actuation NS DAILY [facility] Last Admin: 02/04/17 13:28 Dose: 1 spray Hydralazine HCl (Apresoline) 100 mg PO TID [facility] Last Admin: 02/04/17 17:12 Dose: 100 mg Heparin Sodium/Dextrose (Heparin 25,000 Units/250ml In D5w) 25,000 units in 250 mls @ 11.703 mls/hr IV .[id number] [facility]; 12 UNITS/KG/HR PRN Reason: Protocol Last Admin: 02/04/17 17:12 Dose: 14 units/kg/hr, 13.653 mls/hr Insulin Human Lispro (Humalog Low) 0 units SC ACHS [facility] PRN Reason: Protocol Last Admin: 02/04/17 16:39 Dose: Not Given Levothyroxine Sodium (Synthroid) 100 mcg PO DAILY [facility] Last Admin: 02/04/17 09:30 Dose: 100 mcg Metoprolol Succinate (Toprol Xl) 25 mg PO DAILY [facility] Last Admin: 02/04/17 09:30 Dose: 25 mg Morphine Sulfate (Morphine) 2 mg IVP Q4H PRN PRN Reason: Pain, moderate (4-7) Last Admin: 02/04/17 13:26 Dose: 2 mg Non-Formulary Medication (Cetirizine Hcl [Allergy Relief]) 10 mg PO DAILY [facility] Last Admin: 02/04/17 13:40 Dose: Not Given Non-Formulary Medication (Cholecalciferol (Vitd3)/Vit K2 [D3 + K2 Dots 1,000 Units Tab]) 1,000 units PO DAILY [facility] Last Admin: 02/04/17 13:40 Dose: Not Given Ondansetron HCl (Zofran Inj) 4 mg IVP Q4H PRN PRN Reason: Nausea/Vomiting Last Admin: 02/04/17 17:35 Dose: 4 mg Pantoprazole Sodium (Protonix Ec Tab) 40 mg PO 0600 [facility] Last Admin: 02/04/17 13:28 Dose: Not Given Sodium Bicarbonate (Sodium Bicarbonate Tab) 650 mg PO Q6 [facility] Last Admin: 02/04/17 17:12 Dose: 650 mg - Labs Labs: 02/04/17 05:00 02/04/17 05:00 PT 11.2 Seconds (9.9-11.8) 02/04/17 05:00 INR 1.04 (0.93-1.08) 02/04/17 05:00 APTT 57.3 Seconds (23.7-30.8) H 02/04/17 13:50 Assessment and Plan - Assessment and Plan (Free Text) Plan: Covering Internal Medicine for Dr. Dahl: Plan reviewed. Hgb A1C pending. CKD Stage 5. V/Q scan was low probability. Remains in MICU. Supportive care.
--- NOTE | 2017-02-04 12:45 | CP.PCM.PN ---
Subjective - Date & Time of Evaluation Date of Evaluation: 02/04/17 Time of Evaluation: 12:39 - Subjective Subjective: seen in icu still w/ CP and JOHNSON today on heparin gtt Objective - Vital Signs/Intake and Output Vital Signs (last 24 hours): Temp Pulse Resp BP Pulse Ox 98.7 F 108 H 19 162/77 H 94 L 02/04/17 05:06 02/04/17 06:40 02/04/17 06:40 02/04/17 06:00 02/04/17 06:40 Intake and Output: 02/04/17 02/04/17 06:59 18:59 Intake Total 402 156 Output Total 900 Balance -498 156 - Medications Medications: Current Medications Acetaminophen (Tylenol 325mg Tab) 650 mg PO Q6H PRN PRN Reason: Headache Last Admin: 02/04/17 05:06 Dose: 650 mg Acetylcysteine (Acetylcysteine 20%) 6 ml PO BID [facility] Stop: 02/05/17 23:59 Last Admin: 02/04/17 09:29 Dose: 6 ml Allopurinol (Zyloprim) 100 mg PO DAILY [facility] Last Admin: 02/04/17 09:30 Dose: 100 mg Atorvastatin Calcium (Lipitor) 10 mg PO HS [facility] Clonidine HCl (Catapres) 0.2 mg PO BID PRN PRN Reason: Systolic Blood Pressure Colchicine (Colocrys) 0.6 mg PO DAILY [facility] Last Admin: 02/04/17 09:30 Dose: 0.6 mg Darbepoetin Jovani (Aranesp) 60 mcg SC Q14D [facility] Diphenhydramine HCl (Benadryl) 25 mg PO HS PRN PRN Reason: Insomnia Last Admin: 02/03/17 22:39 Dose: 25 mg Doxazosin Mesylate (Cardura) 8 mg PO DAILY [facility] Last Admin: 02/04/17 09:29 Dose: 8 mg Ferrous Sulfate (Feosol) 324 mg PO MWF [facility] Fluticasone Propionate (Flonase) 0 actuation NS DAILY [facility] Hydralazine HCl (Apresoline) 100 mg PO TID [facility] Last Admin: 02/04/17 09:30 Dose: 100 mg Heparin Sodium/Dextrose (Heparin 25,000 Units/250ml In D5w) 25,000 units in 250 mls @ 11.703 mls/hr IV .[id number] [facility]; 12 UNITS/KG/HR PRN Reason: Protocol Last Titration: 02/04/17 08:03 Dose: 14 units/kg/hr, 13.653 mls/hr Insulin Human Lispro (Humalog Low) 0 units SC ACHS [facility] PRN Reason: Protocol Last Admin: 02/04/17 09:31 Dose: Not Given Levothyroxine Sodium (Synthroid) 100 mcg PO DAILY [facility] Last Admin: 02/04/17 09:30 Dose: 100 mcg Metoprolol Succinate (Toprol Xl) 25 mg PO DAILY [facility] Last Admin: 02/04/17 09:30 Dose: 25 mg Morphine Sulfate (Morphine) 2 mg IVP Q4H PRN PRN Reason: Pain, moderate (4-7) Last Admin: 02/04/17 03:44 Dose: 2 mg Non-Formulary Medication (Cetirizine Hcl [Allergy Relief]) 10 mg PO DAILY [facility] Non-Formulary Medication (Cholecalciferol (Vitd3)/Vit K2 [D3 + K2 Dots 1,000 Units Tab]) 1,000 units PO DAILY [facility] Pantoprazole Sodium (Protonix Ec Tab) 40 mg PO 0600 [facility] Sodium Bicarbonate (Sodium Bicarbonate Tab) 650 mg PO Q6 [facility] Last Admin: 02/04/17 05:43 Dose: 650 mg - Labs Labs: 02/04/17 05:00 02/04/17 05:00 PT 11.2 Seconds (9.9-11.8) 02/04/17 05:00 INR 1.04 (0.93-1.08) 02/04/17 05:00 APTT 44.8 Seconds (23.7-30.8) H 02/04/17 05:00 - Constitutional Appears: Non-toxic - Head Exam Head Exam: ATRAUMATIC - Eye Exam Eye Exam: Normal appearance - ENT Exam ENT Exam: Normal Exam - Neck Exam Neck Exam: Normal Inspection - Respiratory Exam Respiratory Exam: NORMAL BREATHING PATTERN - Cardiovascular Exam Cardiovascular Exam: +S1, +S2 Additional comments: tachycardic - GI/Abdominal Exam GI & Abdominal Exam: Normal Bowel Sounds - Extremities Exam Additional comments: no edema - Neurological Exam Neurological Exam: Alert, Oriented x3 - Psychiatric Exam Psychiatric exam: Normal Affect - Skin Skin Exam: Normal Color Assessment and Plan - Assessment and Plan (Free Text) Assessment: ARF/ Unstable Angina/ Hypertensive nephropathy/ Anemia of Renal Disease/ Secondary hyperparthyroid plan: s/p 2 hour hd yesterday,still w/ good uop will monitor for further HD needs none today cp etiology not clear given absence of culprit lesion on cath. consider eval of aorta. going for v/q scan Continue oral bicarb for metabolic acidosis phos ok, pth pending continue statin and mucomyst will change aranesp to weekly
[2017-02-04] MEDS: Fluticasone Nasal 50 mcg/Spray NS SCH (13:28)
[2017-02-04] MEDS: Pantoprazole 40 mg EC Tab PO SCH (13:28)
--- NOTE | 2017-02-04 13:34 | PN ---
SUBJECTIVE: The patient denied retrosternal chest pain. He complains of left arm pain. He is in sinus tachycardia. He underwent hemodialysis yesterday. PHYSICAL EXAMINATION: VITAL SIGNS: Blood pressure 162/77, heart rate 108 and temperature 98.7, respirations 17. HEENT: Pale conjunctivae. CHEST: Clear. HEART: S1 and S2 regular. EXTREMITIES: No edema. LABORATORY EXAM: Hemoglobin and hematocrit of 8.7 and 26.0, white count and platelet count are within normal limit. Today's BUN and creatinine are 60 and 5.8. Rest of SMA-7 is within normal limit. Official echocardiograph study report, technically it is a limited study, biatrial enlargement, moderate LV systolic dysfunction with anterior and apical septal hypokinesis, moderate TR, mild MR. ASSESSMENT: 1. Chest pain and borderline elevated troponin. 2. Advance renal insufficiency requiring hemodialysis. 3. Rule out pulmonary infarction. 4. Anemia. 5. History of coronary artery disease, status post left anterior descending stenting. 6. Diabetes mellitus and hypertension. 7. Moderately depressed left ventricular systolic function. RECOMMENDATIONS: Continue hydralazine 100 mg t.i.d.; Cardura 8 mg daily; clonidine 0.2 mg twice a day; Feosol 1 tablet Sunday, Sunday and Sunday. Continue intravenous heparin infusion. Continue Lipitor at 10 mg once a day, Synthroid at 100 mcg once a day, Zyloprim at 100 mg once a day. The case was discussed with the community leader and the dental technician metal. The patient will undergo a ventilation perfusion scan today. Gaudencio Skelton MD
[2017-02-04] MEDS: [UNRECOGNIZED DRUG - REMARK] PO SCH (13:40)
[2017-02-04] MEDS: VIT K2 PO SCH (13:40)
[2017-02-04] MEDS: CHOLECALCIFEROL PO SCH (13:40)
[2017-02-04] MEDS: [UNRECOGNIZED DRUG - OTHER] PO SCH (13:40)
--- NOTE | 2017-02-04 13:51 | NM ---
COMPARISON: Single-view chest February 03, 2017. TECHNIQUE: 40.0 mCi technetium 99-m DTPA aerosol. 4.0 mCI technetium 99-m MAA administered intravenously. FINDINGS: VENTILATION COMPONENT: Normal. Retention of radionuclide in the tracheobronchial tree and ingestion of radionuclide in the stomach, incidental findings PERFUSION COMPONENT: Heterogeneous distribution of radionuclide. No geographic, segmental, lobar abnormalities apparent on the present examination. IMPRESSION: Low probability ventilation perfusion scan for pulmonary embolism.
[2017-02-04] MEDS: Heparin 25,000units in D5W 25,000 UNITS/250 ML BAG IV SCH (17:12)
--- NOTE | 2017-02-04 19:38 | CARD ---
APPROVED REPORT EKG Measurement Heart [id number] <Conclusion> Sinus rhythm with 1st degree AV block Minimal voltage criteria for LVH, may be normal variant Nonspecific ST and T wave abnormality Prolonged QT Abnormal ECG
--- NOTE | 2017-02-04 19:56 | CARD ---
APPROVED REPORT EKG Measurement Heart [id number] <Conclusion> Sinus tachycardia Left ventricular hypertrophy with repolarization abnormality Marked ST abnormality, possible anterior subendocardial injury Abnormal ECG
[2017-02-05 06:11] LABS: INR 1.06 (0.93-1.08); PARTIAL THROMBOPLASTIN TIME 61.6 Seconds (23.7-30.8)
[2017-02-05 06:22] LABS: BASO # 0.03 K/mm3 (0.0-2.0); BASO % 0.5 % (0.0-3.0); EOS # 0.1 (0.0-0.7); EOS % 2.4 % (1.5-5.0); GRAN # 4.27 (1.4-6.5); GRAN % 72.7 % (50.0-68.0); HEMATOCRIT 25.8 % (42.0-52.0); LYMPH # 0.7 (1.2-3.4); LYMPH % 12.2 % (22.0-35.0); MEAN CELL VOLUME 95.9 fl (80.0-105.0); MEAN CORPUSCULAR HEMOGLOBIN 31.2 pg (25.0-35.0); MEAN CORPUSCULAR HGB CONC 32.6 g/dl (31.0-37.0); MEAN PLATELET VOLUME 10.4 fl (7.0-11.0); MONO # 0.7 (0.1-0.6); MONO % 12.2 % (1.0-6.0); RED CELL DISTRIBUTION WIDTH 15.3 % (11.5-14.5); WHITE BLOOD COUNT 5.9 10^3/ul (4.5-11.0)
[2017-02-05] MEDS: Pantoprazole 40 mg EC Tab PO SCH (06:42)
[2017-02-05 06:57] LABS: ALB/GLOB RATIO 1.2 (1.1-1.8); BILIRUBIN,TOTAL 0.6 mg/dL (0.2-1.3); CALCIUM 8.9 mg/dL (8.4-10.5); MAGNESIUM 1.8 mg/dL (1.7-2.2); PHOSPHOROUS 7.1 mg/dL (2.5-4.5); POTASSIUM 4.6 mmol/L (3.6-5.0)
--- NOTE | 2017-02-05 07:40 | CP.PCM.PCO ---
Physician Communication Note - Physician Communication Note Physician Communication Note: Consistently stable vitals; Thus, will downgrade to telemetry now
[2017-02-05] MEDS: Insulin Lispro (humaLOG) LOW Coverage SC SCH ×4 (08:07→22:44)
--- NOTE | 2017-02-05 09:35 | CP.CCUPN ---
CCU Subjective - Physician Review Subjective (Free Text): 02/05/17 09:30 During rounds, patient became abruptly bradycardic to 30's, bigeminy on bedside monitor. Atropine 0.5mg x1 IVP given, HR increased to 60's briefly, then patient became progressively more bradycardic to 30's again. Carotid pulse not palpable, confirmed with bedside doppler, then patient lost pulse. No breathing above vent, no heart sounds auscultated, and no palpable or dopplerable femoral or carotid pulses, no corneal reflexes. Family at bedside confirmed pt DNR. Patient declared , time of 9:27 AM 02/05/17. CCU Objective - Vital Signs / Intake & Output Intake and Output (Last 8hrs): Intake & Output 02/04/17 02/05/17 02/05/17 22:59 06:59 14:59 Intake Total 95 155 Balance 95 155 Intake: IV 95 155 - Physical Exam Head: Positive for: Atraumatic, Normocephalic Pupils: Positive for: PERRL Extroacular Muscles: Positive for: EOMI Conjunctiva: Positive for: Normal Mouth: Positive for: Moist Mucous Membranes Neck: Positive for: Normal Range of Motion Respiratory/Chest: Positive for: Clear to Auscultation, Good Air Exchange. Negative for: Respiratory Distress, Accessory Muscle Use Cardiovascular: Positive for: Regular Rate and Rhythm, Normal S1, S2. Negative for: Murmurs Abdomen: Positive for: Normal Bowel Sounds. Negative for: Tenderness, Distention, Peritoneal Signs Back: Positive for: Normal Inspection Upper Extremity: Positive for: NORMAL PULSES, Other (Left AV shunt, positive thrill and bruit). Negative for: Cyanosis, Edema Lower Extremity: Positive for: Edema (trace edema bilaterally), NORMAL PULSES, Neurovascularly Intact. Negative for: CALF TENDERNESS, Temperature Abnormalties Neurological: Positive for: GCS=15, CN II-XII Intact, Speech Normal Skin: Positive for: Warm, Dry, Normal Color. Negative for: Rashes Psychiatric: Positive for: Alert, Oriented x 3, Normal Insight, Normal Concentration - Medications Active Medications: Active Medications Generic Name Dose Route Start Last Admin Trade Name Freq PRN Reason Stop Dose Admin Acetaminophen 650 mg 02/04/17 04:37 02/04/17 05:06 Tylenol 325mg Tab PO 650 mg Q6H PRN Administration Headache Acetylcysteine 6 ml 10/07/17 18:00 02/04/17 18:20 Acetylcysteine 20% PO 02/05/17 23:59 Not Given BID JUAN MANUEL Allopurinol 100 mg 02/04/17 10:00 02/04/17 09:30 Zyloprim PO 100 mg DAILY JUAN MANUEL Administration Atorvastatin Calcium 10 mg 02/03/17 22:00 02/04/17 21:59 Lipitor PO 10 mg HS JUAN MANUEL Administration Clonidine HCl 0.2 mg 02/03/17 17:14 02/04/17 13:25 Catapres PO 0.2 mg BID PRN Administration Systolic Blood Pressure Darbepoetin Jovani 60 mcg 02/10/17 10:00 Aranesp SC SAT JUAN MANUEL Diphenhydramine HCl 25 mg 02/03/17 22:33 02/05/17 03:19 Benadryl PO 25 mg HS PRN Administration Insomnia Doxazosin Mesylate 8 mg 02/04/17 10:00 02/04/17 09:29 Cardura PO 8 mg DAILY JUAN MANUEL Administration Ferrous Sulfate 324 mg 02/05/17 10:00 Feosol PO MWF JUAN MANUEL Fluticasone Propionate 0 actuation 02/04/17 10:00 02/04/17 13:28 Flonase NS 1 spray DAILY JUAN MANUEL Administration Hydralazine HCl 100 mg 02/03/17 18:00 02/04/17 17:12 Apresoline PO 100 mg TID JUAN MANUEL Administration Heparin Sodium/Dextrose 25,000 units in 250 mls @ 11.703 mls/hr 02/03/17 17: 45 02/05/17 07:08 Heparin 25,000 Units/250ml In D5w IV Infused .[id number] [facility] Titration Protocol 12 UNITS/KG/HR Insulin Human Lispro 0 units 02/03/17 16:30 02/05/17 08:07 Humalog Low SC Not Given ACHS [facility] Protocol Levothyroxine Sodium 100 mcg 02/04/17 10:00 02/04/17 09:30 Synthroid PO 100 mcg DAILY JUAN MANUEL Administration Metoprolol Succinate 25 mg 02/04/17 10:00 02/04/17 09:30 Toprol Xl PO 25 mg DAILY JUAN MANUEL Administration Morphine Sulfate 2 mg 02/03/17 15:26 02/04/17 13:26 Morphine IVP 2 mg Q4H PRN Administration Pain, moderate (4-7) Non-Formulary Medication 10 mg 02/04/17 10:00 02/04/17 13:40 Cetirizine Hcl [Allergy Relief] PO Not Given DAILY JUAN MANUEL Non-Formulary Medication 1,000 units 02/04/17 10:00 02/04/17 13:40 Cholecalciferol (Vitd3)/Vit K2 [D3 + K2 Dots 1,000 Units Tab] PO Not Given DAILY [facility] Ondansetron HCl 4 mg 02/04/17 17:05 02/05/17 08:01 Zofran Inj IVP 4 mg Q4H PRN Administration Nausea/Vomiting Pantoprazole Sodium 40 mg 02/04/17 06:00 02/05/17 06:42 Protonix Ec Tab PO 40 mg 0600 JUAN MANUEL Administration Sodium Bicarbonate 650 mg 02/03/17 18:00 02/05/17 06:42 Sodium Bicarbonate Tab PO 650 mg Q6 JUAN MANUEL Administration - Patient Studies Lab Studies: Microbiology Studies 02/03/17 18:00 Urine Culture - Final Urine,Clean Catch No Growth (<1,000 CFU/ML) Lab Studies 02/05/17 02/05/17 02/05/17 Range/Units 05:00 05:00 05:00 WBC 5.9 (4.5-11.0) 10^3/ul RBC 2.69 L (3.5-6.1) 10^6/uL Hgb 8.4 L (14.0-18.0) g/dL Hct 25.8 L (42.0-52.0) % MCV 95.9 (80.0-105.0) fl MCH 31.2 (25.0-35.0) pg MCHC 32.6 (31.0-37.0) g/dl RDW 15.3 H (11.5-14.5) % Plt Count 200 (120.0-450.0) 10^3/uL MPV 10.4 (7.0-11.0) fl Gran % 72.7 H (50.0-68.0) % Lymph % (Auto) 12.2 L (22.0-35.0) % [place] % (Auto) 12.2 H (1.0-6.0) % Eos % (Auto) 2.4 (1.5-5.0) % Baso % (Auto) 0.5 (0.0-3.0) % Gran # 4.27 (1.4-6.5) Lymph # 0.7 L (1.2-3.4) [place] # 0.7 H (0.1-0.6) Eos # 0.1 (0.0-0.7) Baso # 0.03 (0.0-2.0) K/mm3 PT 11.4 (9.9-11.8) Seconds INR 1.06 (0.93-1.08) APTT 61.6 H (23.7-30.8) Seconds Sodium 140 (132-148) mmol/L Potassium 4.6 (3.6-5.0) mmol/L Chloride 103 (98-107) mmol/L Carbon Dioxide 23 (21-33) mmol/L Anion Gap 19 (10-20) BUN 63 H (7-21) mg/dL Creatinine 6.7 H (0.8-1.5) mg/dL Est GFR ( Amer) 10 Est GFR (Non-Af Amer) 8 POC Glucose (mg/dL) (65-110) mg/dL Random Glucose 98 (70-110) mg/dL Calcium 8.9 (8.4-10.5) mg/dL Phosphorus 7.1 H (2.5-4.5) mg/dL Magnesium 1.8 (1.7-2.2) mg/dL Ferritin ng/mL Total Bilirubin 0.6 (0.2-1.3) mg/dL AST 51 (17-59) U/L ALT 34 (7-56) U/L Alkaline Phosphatase 70 (38-126) U/L Total Protein 6.0 (5.8-8.3) g/dL Albumin 3.3 (3.0-4.8) g/dL Globulin 2.7 gm/dL Albumin/Globulin Ratio 1.2 (1.1-1.8) 02/04/17 02/04/17 02/04/17 Range/Units 22:06 19:50 16:37 WBC (4.5-11.0) 10^3/ul RBC (3.5-6.1) 10^6/uL Hgb (14.0-18.0) g/dL Hct (42.0-52.0) % MCV (80.0-105.0) fl MCH (25.0-35.0) pg MCHC (31.0-37.0) g/dl RDW (11.5-14.5) % Plt Count (120.0-450.0) 10^3/uL MPV (7.0-11.0) fl Gran % (50.0-68.0) % Lymph % (Auto) (22.0-35.0) % [place] % (Auto) (1.0-6.0) % Eos % (Auto) (1.5-5.0) % Baso % (Auto) (0.0-3.0) % Gran # (1.4-6.5) Lymph # (1.2-3.4) [place] # (0.1-0.6) Eos # (0.0-0.7) Baso # (0.0-2.0) K/mm3 PT (9.9-11.8) Seconds INR (0.93-1.08) APTT 47.1 H (23.7-30.8) Seconds Sodium (132-148) mmol/L Potassium (3.6-5.0) mmol/L Chloride (98-107) mmol/L Carbon Dioxide (21-33) mmol/L Anion Gap (10-20) BUN (7-21) mg/dL Creatinine (0.8-1.5) mg/dL Est GFR ( Amer) Est GFR (Non-Af Amer) POC Glucose (mg/dL) 111 H 123 H (65-110) mg/dL Random Glucose (70-110) mg/dL Calcium (8.4-10.5) mg/dL Phosphorus (2.5-4.5) mg/dL Magnesium (1.7-2.2) mg/dL Ferritin ng/mL Total Bilirubin (0.2-1.3) mg/dL AST (17-59) U/L ALT (7-56) U/L Alkaline Phosphatase (38-126) U/L Total Protein (5.8-8.3) g/dL Albumin (3.0-4.8) g/dL Globulin gm/dL Albumin/Globulin Ratio (1.1-1.8) 02/04/17 02/04/17 02/04/17 Range/Units 13:50 11:09 07:32 WBC (4.5-11.0) 10^3/ul RBC (3.5-6.1) 10^6/uL Hgb (14.0-18.0) g/dL Hct (42.0-52.0) % MCV (80.0-105.0) fl MCH (25.0-35.0) pg MCHC (31.0-37.0) g/dl RDW (11.5-14.5) % Plt Count (120.0-450.0) 10^3/uL MPV (7.0-11.0) fl Gran % (50.0-68.0) % Lymph % (Auto) (22.0-35.0) % [place] % (Auto) (1.0-6.0) % Eos % (Auto) (1.5-5.0) % Baso % (Auto) (0.0-3.0) % Gran # (1.4-6.5) Lymph # (1.2-3.4) [place] # (0.1-0.6) Eos # (0.0-0.7) Baso # (0.0-2.0) K/mm3 PT (9.9-11.8) Seconds INR (0.93-1.08) APTT 57.3 H (23.7-30.8) Seconds Sodium (132-148) mmol/L Potassium (3.6-5.0) mmol/L Chloride (98-107) mmol/L Carbon Dioxide (21-33) mmol/L Anion Gap (10-20) BUN (7-21) mg/dL Creatinine (0.8-1.5) mg/dL Est GFR ( Amer) Est GFR (Non-Af Amer) POC Glucose (mg/dL) 141 H 98 (65-110) mg/dL Random Glucose (70-110) mg/dL Calcium (8.4-10.5) mg/dL Phosphorus (2.5-4.5) mg/dL Magnesium (1.7-2.2) mg/dL Ferritin ng/mL Total Bilirubin (0.2-1.3) mg/dL AST (17-59) U/L ALT (7-56) U/L Alkaline Phosphatase (38-126) U/L Total Protein (5.8-8.3) g/dL Albumin (3.0-4.8) g/dL Globulin gm/dL Albumin/Globulin Ratio (1.1-1.8) 02/03/17 Range/Units 13:40 WBC (4.5-11.0) 10^3/ul RBC (3.5-6.1) 10^6/uL Hgb (14.0-18.0) g/dL Hct (42.0-52.0) % MCV (80.0-105.0) fl MCH (25.0-35.0) pg MCHC (31.0-37.0) g/dl RDW (11.5-14.5) % Plt Count (120.0-450.0) 10^3/uL MPV (7.0-11.0) fl Gran % (50.0-68.0) % Lymph % (Auto) (22.0-35.0) % [place] % (Auto) (1.0-6.0) % Eos % (Auto) (1.5-5.0) % Baso % (Auto) (0.0-3.0) % Gran # (1.4-6.5) Lymph # (1.2-3.4) [place] # (0.1-0.6) Eos # (0.0-0.7) Baso # (0.0-2.0) K/mm3 PT (9.9-11.8) Seconds INR (0.93-1.08) APTT (23.7-30.8) Seconds Sodium (132-148) mmol/L Potassium (3.6-5.0) mmol/L Chloride (98-107) mmol/L Carbon Dioxide (21-33) mmol/L Anion Gap (10-20) BUN (7-21) mg/dL Creatinine (0.8-1.5) mg/dL Est GFR ( Amer) Est GFR (Non-Af Amer) POC Glucose (mg/dL) (65-110) mg/dL Random Glucose (70-110) mg/dL Calcium (8.4-10.5) mg/dL Phosphorus (2.5-4.5) mg/dL Magnesium (1.7-2.2) mg/dL Ferritin 125.0 ng/mL Total Bilirubin (0.2-1.3) mg/dL AST (17-59) U/L ALT (7-56) U/L Alkaline Phosphatase (38-126) U/L Total Protein (5.8-8.3) g/dL Albumin (3.0-4.8) g/dL Globulin gm/dL Albumin/Globulin Ratio (1.1-1.8) Laboratory Results - last 24 hr 02/03/17 02/04/17 02/04/17 13:40 07:32 11:09 WBC RBC Hgb Hct MCV MCH MCHC RDW Plt Count MPV Gran % Lymph % (Auto) [place] % (Auto) Eos % (Auto) Baso % (Auto) Gran # Lymph # [place] # Eos # Baso # PT INR APTT Sodium Potassium Chloride Carbon Dioxide Anion Gap BUN Creatinine Est GFR ( Amer) Est GFR (Non-Af Amer) POC Glucose (mg/dL) 98 141 H Random Glucose Calcium Phosphorus Magnesium Ferritin 125.0 Total Bilirubin AST ALT Alkaline Phosphatase Total Protein Albumin Globulin Albumin/Globulin Ratio 02/04/17 02/04/17 02/04/17 13:50 16:37 19:50 WBC RBC Hgb Hct MCV MCH MCHC RDW Plt Count MPV Gran % Lymph % (Auto) [place] % (Auto) Eos % (Auto) Baso % (Auto) Gran # Lymph # [place] # Eos # Baso # PT INR APTT 57.3 H 47.1 H Sodium Potassium Chloride Carbon Dioxide Anion Gap BUN Creatinine Est GFR ( Amer) Est GFR (Non-Af Amer) POC Glucose (mg/dL) 123 H Random Glucose Calcium Phosphorus Magnesium Ferritin Total Bilirubin AST ALT Alkaline Phosphatase Total Protein Albumin Globulin Albumin/Globulin Ratio 02/04/17 02/05/17 02/05/17 22:06 05:00 05:00 WBC 5.9 RBC 2.69 L Hgb 8.4 L Hct 25.8 L MCV 95.9 MCH 31.2 MCHC 32.6 RDW 15.3 H Plt Count 200 MPV 10.4 Gran % 72.7 H Lymph % (Auto) 12.2 L [place] % (Auto) 12.2 H Eos % (Auto) 2.4 Baso % (Auto) 0.5 Gran # 4.27 Lymph # 0.7 L [place] # 0.7 H Eos # 0.1 Baso # 0.03 PT 11.4 INR 1.06 APTT 61.6 H Sodium Potassium Chloride Carbon Dioxide Anion Gap BUN Creatinine Est GFR ( Amer) Est GFR (Non-Af Amer) POC Glucose (mg/dL) 111 H Random Glucose Calcium Phosphorus Magnesium Ferritin Total Bilirubin AST ALT Alkaline Phosphatase Total Protein Albumin Globulin Albumin/Globulin Ratio 02/05/17 05:00 WBC RBC Hgb Hct MCV MCH MCHC RDW Plt Count MPV Gran % Lymph % (Auto) [place] % (Auto) Eos % (Auto) Baso % (Auto) Gran # Lymph # [place] # Eos # Baso # PT INR APTT Sodium 140 Potassium 4.6 Chloride 103 Carbon Dioxide 23 Anion Gap 19 BUN 63 H Creatinine 6.7 H Est GFR ( Amer) 10 Est GFR (Non-Af Amer) 8 POC Glucose (mg/dL) Random Glucose 98 Calcium 8.9 Phosphorus 7.1 H Magnesium 1.8 Ferritin Total Bilirubin 0.6 AST 51 ALT 34 Alkaline Phosphatase 70 Total Protein 6.0 Albumin 3.3 Globulin 2.7 Albumin/Globulin Ratio 1.2 Fingerstick Blood Sugar Results: 100 Critical Care Progress Note - Nutrition Nutrition: Nutrition Category Date Time Status Renal Diet [DIET] Diets 02/03/17 Dinner Ordered
[2017-02-05] MEDS: Metoprolol Succinate 25 mg XL Tab PO SCH (09:40)
[2017-02-05] MEDS: Levothyroxine 100 MCG TAB PO SCH (09:40)
[2017-02-05] MEDS: [UNRECOGNIZED DRUG - OTHER] PO SCH (09:42)
[2017-02-05] MEDS: CHOLECALCIFEROL PO SCH (09:42)
[2017-02-05] MEDS: [UNRECOGNIZED DRUG - REMARK] PO SCH (09:42)
[2017-02-05] MEDS: VIT K2 PO SCH (09:42)
[2017-02-05] MEDS: Fluticasone Nasal 50 mcg/Spray NS SCH (09:45)
[2017-02-05] MEDS ORDERED: Non Formulary Medication (Ferrous Sulfate [Feosol] 325 MG) PO SCH (10:00)
--- NOTE | 2017-02-05 10:31 | CP.PCM.PN ---
Subjective - Date & Time of Evaluation Date of Evaluation: 02/05/17 Time of Evaluation: 10:20 - Subjective Subjective: s: seen and examined denies any chest discomfort todya o: vs reviewed gen: nad sclera: anicteric op: clear neck: supple cv: +s1+s2 lungs: cta b/l abd: soft ext: no edema neuro: a+ox3 psych: normal affect skin: no rash imp: ARF/ Unstable Angina/ Hypertensive nephropathy/ Anemia of Renal Disease/ Secondary hyperparthyroid plan: UOP remains good, cr back to around baseline at this time remains tachycardic, etiology not clear. S/p V/1 low prob. 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 Objective - Vital Signs/Intake and Output Vital Signs (last 24 hours): Temp Pulse Resp BP Pulse Ox 99.1 F 109 H 20 142/67 95 02/05/17 04:00 02/05/17 09:40 02/05/17 04:00 02/05/17 09:40 02/04/17 20:00 Intake and Output: 02/05/17 02/05/17 06:59 18:59 Intake Total 95 155 Balance 95 155 - Medications Medications: Current Medications Acetaminophen (Tylenol 325mg Tab) 650 mg PO Q6H PRN PRN Reason: Headache Last Admin: 02/04/17 05:06 Dose: 650 mg Acetylcysteine (Acetylcysteine 20%) 6 ml PO BID JUAN MANUEL Stop: 02/05/17 23:59 Last Admin: 02/04/17 18:20 Dose: Not Given Allopurinol (Zyloprim) 100 mg PO DAILY JUAN MANUEL Last Admin: 02/05/17 09:41 Dose: 100 mg Atorvastatin Calcium (Lipitor) 10 mg PO HS JUAN MANUEL Last Admin: 02/04/17 21:59 Dose: 10 mg Clonidine HCl (Catapres) 0.2 mg PO BID PRN PRN Reason: Systolic Blood Pressure Last Admin: 02/04/17 13:25 Dose: 0.2 mg Darbepoetin Jovani (Aranesp) 60 mcg SC SAT JUAN MANUEL Diphenhydramine HCl (Benadryl) 25 mg PO HS PRN PRN Reason: Insomnia Last Admin: 02/05/17 03:19 Dose: 25 mg Doxazosin Mesylate (Cardura) 8 mg PO DAILY [facility] Last Admin: 02/05/17 09:40 Dose: 8 mg Ferrous Sulfate (Feosol) 324 mg PO MWF [facility] Last Admin: 02/05/17 09:39 Dose: 324 mg Fluticasone Propionate (Flonase) 0 actuation NS DAILY [facility] Last Admin: 02/05/17 09:45 Dose: 1 spray Hydralazine HCl (Apresoline) 100 mg PO TID [facility] Last Admin: 02/05/17 09:40 Dose: 100 mg Heparin Sodium/Dextrose (Heparin 25,000 Units/250ml In D5w) 25,000 units in 250 mls @ 11.703 mls/hr IV .[id number] [facility]; 12 UNITS/KG/HR PRN Reason: Protocol Last Titration: 02/05/17 07:08 Dose: Infused Insulin Human Lispro (Humalog Low) 0 units SC ACHS [facility] PRN Reason: Protocol Last Admin: 02/05/17 08:07 Dose: Not Given Levothyroxine Sodium (Synthroid) 100 mcg PO DAILY [facility] Last Admin: 02/05/17 09:40 Dose: 100 mcg Metoprolol Succinate (Toprol Xl) 25 mg PO DAILY [facility] Last Admin: 02/05/17 09:40 Dose: 25 mg Morphine Sulfate (Morphine) 2 mg IVP Q4H PRN PRN Reason: Pain, moderate (4-7) Last Admin: 02/04/17 13:26 Dose: 2 mg Non-Formulary Medication (Cetirizine Hcl [Allergy Relief]) 10 mg PO DAILY [facility] Last Admin: 02/05/17 09:42 Dose: Not Given Non-Formulary Medication (Cholecalciferol (Vitd3)/Vit K2 [D3 + K2 Dots 1,000 Units Tab]) 1,000 units PO DAILY [facility] Last Admin: 02/05/17 09:42 Dose: Not Given Ondansetron HCl (Zofran Inj) 4 mg IVP Q4H PRN PRN Reason: Nausea/Vomiting Last Admin: 02/05/17 08:01 Dose: 4 mg Pantoprazole Sodium (Protonix Ec Tab) 40 mg PO 0600 [facility] Last Admin: 02/05/17 06:42 Dose: 40 mg Sodium Bicarbonate (Sodium Bicarbonate Tab) 650 mg PO Q6 [facility]UAN MANUEL Last Admin: 02/05/17 06:42 Dose: 650 mg - Labs Labs: 02/05/17 05:00 02/05/17 05:00 PT 11.4 Seconds (9.9-11.8) 02/05/17 05:00 INR 1.06 (0.93-1.08) 02/05/17 05:00 APTT 61.6 Seconds (23.7-30.8) H 02/05/17 05:00
--- NOTE | 2017-02-05 11:24 | CP.PCM.PN ---
Subjective - Date & Time of Evaluation Date of Evaluation: 02/05/17 Time of Evaluation: 12:13 - Subjective Subjective: Patient seen and evaluated at bedside. Patient denies any headache, facial pain , arm pain or chest pain. He did not have any acute events overnight. His concern is to be able to get on a plane tomorrow to fly back home to [place]. He denies any SOB, dizziniss, N/V/F/C, or any other complaints and was resting comfortably. He was also more alert than yesterday. Objective - Vital Signs/Intake and Output Vital Signs (last 24 hours): Temp Pulse Resp BP Pulse Ox 98.1 F 109 H 16 142/67 92 L 02/05/17 08:00 02/05/17 09:40 02/05/17 08:00 02/05/17 09:40 02/05/17 08:00 Intake and Output: 02/05/17 02/05/17 06:59 18:59 Intake Total 95 155 Balance 95 155 - Medications Medications: Current Medications Acetaminophen (Tylenol 325mg Tab) 650 mg PO Q6H PRN PRN Reason: Headache Last Admin: 02/04/17 05:06 Dose: 650 mg Acetylcysteine (Acetylcysteine 20%) 6 ml PO BID [facility] Stop: 02/05/17 23:59 Last Admin: 02/04/17 18:20 Dose: Not Given Allopurinol (Zyloprim) 100 mg PO DAILY [facility] Last Admin: 02/05/17 09:41 Dose: 100 mg Atorvastatin Calcium (Lipitor) 10 mg PO HS [facility] Last Admin: 02/04/17 21:59 Dose: 10 mg Clonidine HCl (Catapres) 0.2 mg PO BID PRN PRN Reason: Systolic Blood Pressure Last Admin: 02/04/17 13:25 Dose: 0.2 mg Darbepoetin Jovani (Aranesp) 60 mcg SC SAT [facility] Diphenhydramine HCl (Benadryl) 25 mg PO HS PRN PRN Reason: Insomnia Last Admin: 02/05/17 03:19 Dose: 25 mg Doxazosin Mesylate (Cardura) 8 mg PO DAILY [facility] Last Admin: 02/05/17 09:40 Dose: 8 mg Ferrous Sulfate ([facility]ol) [facility] Last Admin: 02/05/17 09:39 Dose: 324 mg Fluticasone Propionate (Flonase) 0 actuation NS DAILY [facility] Last Admin: 02/05/17 09:45 Dose: 1 spray Hydralazine HCl (Apresoline) 100 mg PO TID [facility] Last Admin: 02/05/17 09:40 Dose: 100 mg Heparin Sodium/Dextrose (Heparin 25,000 Units/250ml In D5w) 25,000 units in 250 mls @ 11.703 mls/hr IV .[id number] [facility]; 12 UNITS/KG/HR PRN Reason: Protocol Last Titration: 02/05/17 07:08 Dose: Infused Insulin Human Lispro (Humalog Low) 0 units SC ACHS [facility] PRN Reason: Protocol Last Admin: 02/05/17 08:07 Dose: Not Given Levothyroxine Sodium (Synthroid) 100 mcg PO DAILY [facility] Last Admin: 02/05/17 09:40 Dose: 100 mcg Metoprolol Succinate (Toprol Xl) 25 mg PO DAILY [facility] Last Admin: 02/05/17 09:40 Dose: 25 mg Morphine Sulfate (Morphine) 2 mg IVP Q4H PRN PRN Reason: Pain, moderate (4-7) Last Admin: 02/04/17 13:26 Dose: 2 mg Non-Formulary Medication (Cetirizine Hcl [Allergy Relief]) 10 mg PO DAILY [facility] Last Admin: 02/05/17 09:42 Dose: Not Given Non-Formulary Medication (Cholecalciferol (Vitd3)/Vit K2 [D3 + K2 Dots 1,000 Units Tab]) 1,000 units PO DAILY [facility] Last Admin: 02/05/17 09:42 Dose: Not Given Ondansetron HCl (Zofran Inj) 4 mg IVP Q4H PRN PRN Reason: Nausea/Vomiting Last Admin: 02/05/17 08:01 Dose: 4 mg Pantoprazole Sodium (Protonix Ec Tab) 40 mg PO 0600 [facility] Last Admin: 02/05/17 06:42 Dose: 40 mg Sodium Bicarbonate (Sodium Bicarbonate Tab) 650 mg PO Q6 [facility] Last Admin: 02/05/17 06:42 Dose: 650 mg - Labs Labs: 02/05/17 05:00 02/05/17 05:00 PT 11.4 Seconds (9.9-11.8) 02/05/17 05:00 INR 1.06 (0.93-1.08) 02/05/17 05:00 APTT 61.6 Seconds (23.7-30.8) H 02/05/17 05:00 - Constitutional Appears: Non-toxic - Head Exam Head Exam: ATRAUMATIC, NORMAL INSPECTION, NORMOCEPHALIC - Eye Exam Eye Exam: EOMI, Normal appearance - ENT Exam ENT Exam: Mucous Membranes Moist - Neck Exam Neck Exam: Full ROM. absent: Lymphadenopathy, Thyromegaly - Respiratory Exam Respiratory Exam: Clear to Ausculation Bilateral, NORMAL BREATHING PATTERN - Cardiovascular Exam Cardiovascular Exam: REGULAR RHYTHM, +S1, +S2 - Extremities Exam Extremities Exam: Pedal Edema Additional comments: pedal edema 1+ bilaterally, pedal pulses present bilaterally - Back Exam Back Exam: NORMAL INSPECTION - Neurological Exam Neurological Exam: Alert, Awake, Oriented x3 - Psychiatric Exam Psychiatric exam: Normal Affect, Normal Mood - Skin Skin Exam: Normal Color Assessment and Plan - Assessment and Plan (Free Text) Assessment: 71 M with PMH of with PMH of cardiac stent, CHF on lasix, diabetes, HTN, anemia and CKD Stage 5, SP cardiac cath without stents. Patient currently being monitored. Plan: Plan: 1. Chest Pain- STEMI -Chest Xray showed acute CHF -EKG ordered, showed ischemic changes in leads AVL, and precordial leads, pending official read -elevated toponins -given morphine, nitro, metoprolol -on lipitor 10 -CMP repeated and being monitored - emergent cardiac cath procedure done, no occlusions found, patient being monitored in ICU -V/Q scan showed lowe probability 2. CKD Stage 5 -K was 5.8 on admission, currently 4.6 , continue to monitor -received emergent HD post cardiac cath procedure due to contrast use -Electrolytes currently stable, keep monitoring -given acetylcysteine -metabolic acidosis, continue bicarb -follow CMP and monitor -continue home meds -N HD needed, follow up outpatient for HD if needed -PTH leel ordered 3. HTN -BP 142/67 -continue to monitor -continue hydralazine TID per cardiology -continue home medications -Tachycardic, continue to monitor 4. CHF -Echo shows biatrial enlargement, moderate LV systolid dysfunction with anterior and apical septal hypookinesis. Moderate TR, Mild MR. no effusion seen. -continue home meds 5. Anemia-chronic -Hgb: 8.8 -iron 74, TIBC 249 -continue to monitor 6. DM -hold oral hypoglycemics -continue insulin sliding scale -Hemoglobin A1C ordered 7. GI/DVT prophylaxis -heparin -protonix
[2017-02-05 11:48] LABS: INR 1.06 (0.93-1.08)
[2017-02-05] MEDS: Acetylcysteine 20% Inhal Soln (4ml) PO SCH (20:12)
[2017-02-05] MEDS: Heparin 25,000units in D5W 25,000 UNITS/250 ML BAG IV SCH (21:40)
[2017-02-06] MEDS ORDERED: Alum-Mag Hydrox-Simethicone Susp (30 mL) PO ONE ×2 (01:55→23:52)
[2017-02-06] MEDS: Pantoprazole 40 mg EC Tab PO SCH (06:02)
[2017-02-06 06:17] LABS: BASO # 0.02 K/mm3 (0.0-2.0); BASO % 0.3 % (0.0-3.0); EOS # 0.1 (0.0-0.7); EOS % 1.9 % (1.5-5.0); GRAN # 4.19 (1.4-6.5); GRAN % 72.7 % (50.0-68.0); HEMATOCRIT 26.3 % (42.0-52.0); LYMPH # 0.6 (1.2-3.4); LYMPH % 11.1 % (22.0-35.0); MEAN CELL VOLUME 94.9 fl (80.0-105.0); MEAN CORPUSCULAR HGB CONC 32.7 g/dl (31.0-37.0); MEAN PLATELET VOLUME 10.8 fl (7.0-11.0); MONO # 0.8 (0.1-0.6); RED CELL DISTRIBUTION WIDTH 15.1 % (11.5-14.5); WHITE BLOOD COUNT 5.8 10^3/ul (4.5-11.0)
[2017-02-06 06:21] LABS: INR 1.06 (0.93-1.08); PARTIAL THROMBOPLASTIN TIME 60.2 Seconds (23.7-30.8)
[2017-02-06 06:49] LABS: ALB/GLOB RATIO 1.2 (1.1-1.8); BILIRUBIN,TOTAL 0.8 mg/dL (0.2-1.3); CALCIUM 9.2 mg/dL (8.4-10.5); MAGNESIUM 1.8 mg/dL (1.7-2.2); TOTAL PROTEIN 6.4 g/dL (5.8-8.3)
[2017-02-06 07:08] LABS: PHOSPHOROUS 7.1 mg/dL (2.5-4.5)
[2017-02-06] MEDS: Insulin Lispro (humaLOG) LOW Coverage SC SCH ×4 (07:30→22:26)
[2017-02-06] MEDS: Metoprolol Succinate 25 mg XL Tab PO SCH (09:51)
[2017-02-06] MEDS: Levothyroxine 100 MCG TAB PO SCH (09:54)
[2017-02-06] MEDS ORDERED: Alum-Mag Hydrox-Simethicone Susp (30 mL) PO STA (09:56)
--- NOTE | 2017-02-06 10:19 | PN ---
DATE: 02/06/2017 CARDIOLOGY FOLLOWUP NOTE SUBJECTIVE: The patient is chest pain free. No shortness of breath noted. PHYSICAL EXAMINATION: VITAL SIGNS: Blood pressure is 152/93 and heart rate is in the 90s and normal sinus rhythm. NECK: Negative JVD. LUNGS: Without rales. HEART: Reveals S1 and S2. EXTREMITIES: Without edema. LABORATORY DATA: The creatinine is up to 7.5 with a potassium of 5.0 and the hemoglobin is 8.6. IMPRESSION 1. Borderline critical coronary artery disease documented by cardiac catheterization. 2. End-stage renal disease. 3. Diabetes mellitus. 4. Hypercholesterolemia. 5. History of stents in the past. PLAN: Given these findings, we will need to transfer the patient to have him ambulate. From a cardiac perspective, the patient can be discharged and travel back to [place]. Awaiting renal input if okay with nephrology, the patient can be discharged. Madi Mccoy MD
[2017-02-06] MEDS: [UNRECOGNIZED DRUG - REMARK] PO SCH (10:30)
[2017-02-06] MEDS: VIT K2 PO SCH (10:31)
[2017-02-06] MEDS: [UNRECOGNIZED DRUG - OTHER] PO SCH (10:31)
[2017-02-06] MEDS: CHOLECALCIFEROL PO SCH (10:31)
[2017-02-06] MEDS: Fluticasone Nasal 50 mcg/Spray NS SCH (10:50)
[2017-02-06] MEDS: Heparin 25,000units in D5W 25,000 UNITS/250 ML BAG IV SCH (11:06)
[2017-02-06] MEDS ORDERED: Ferric Citrate 210 mg (AURYXIA) Tab. PO SCH (12:00)
--- NOTE | 2017-02-06 12:44 | PN ---
SUBJECTIVE: I saw him in the intensive care unit, sitting up in bed. He has a bunch of things going on. He has NSTEMI; end-stage renal disease, on dialysis with CKD V; anemia; hypertension; CHF; diabetes. He was on a cruise ship from [place] doing his thing and he had chest pain on the last day of the cruise ship and now he is here trying to get better. He is having left arm pain on and off. PHYSICAL EXAMINATION: VITAL SIGNS: He has 98.6 temperature, 111 pulse, 152/90 blood pressure, 16 respiratory rate. HEENT: Head is atraumatic, normocephalic. HEART: Regular rate. LUNGS: Clear to auscultation. ABDOMEN: Soft. EXTREMITIES: No edema. LABORATORY DATA: He has a lab of 139 sodium, potassium is 5, BUN is 68, creatinine 7.5 on dialysis. GFR is 7, sugar is 130, calcium 11.2, phosphorus 7.1, magnesium 1.8. Total bilirubin is 0.8, AST is 45, ALT is 32, alkaline phosphatase 35, total protein 6.4. White count 5.8, 8.6 hemoglobin, 26.3 hematocrit with 206 platelets. Hepatitis screen is negative. He is being seen by multiple physicians, renal, cardiology, pulmonology. He is talking to get back to [place] once he is medically cleared. We will adjust the medications. Continue with aggressive treatment and care. Yobany Wilkinson DO
--- NOTE | 2017-02-06 13:31 | CP.PCM.PN ---
Subjective - Date & Time of Evaluation Date of Evaluation: 02/06/17 Time of Evaluation: 13:26 - Subjective Subjective: RENAL FOLLOW UP NOTE transferred out of icu complains of cough no urinary complaints no sob Objective - Vital Signs/Intake and Output Vital Signs (last 24 hours): Temp Pulse Resp BP Pulse Ox 98.7 F 99 H 20 151/81 H 91 L 02/06/17 12:00 02/06/17 12:00 02/06/17 12:00 02/06/17 12:00 02/06/17 01:30 Intake and Output: 02/06/17 02/06/17 06:59 18:59 Intake Total 250 Balance 250 - Medications Medications: Current Medications Acetaminophen (Tylenol 325mg Tab) 650 mg PO Q6H PRN PRN Reason: Headache Last Admin: 02/04/17 05:06 Dose: 650 mg Allopurinol (Zyloprim) 100 mg PO DAILY [facility] Last Admin: 02/06/17 09:54 Dose: 100 mg Atorvastatin Calcium (Lipitor) 10 mg PO HS [facility] Last Admin: 02/05/17 21:38 Dose: 10 mg Clonidine HCl (Catapres) 0.2 mg PO BID PRN PRN Reason: Systolic Blood Pressure Last Admin: 02/04/17 13:25 Dose: 0.2 mg Darbepoetin Jovani (Aranesp) 60 mcg SC SAT [facility] Diphenhydramine HCl (Benadryl) 25 mg PO HS PRN PRN Reason: Insomnia Last Admin: 02/05/17 21:38 Dose: 25 mg Doxazosin Mesylate (Cardura) 8 mg PO DAILY [facility] Last Admin: 02/06/17 09:50 Dose: 8 mg Ferric Citrate (Auryxia) 420 mg PO WM [facility] Ferrous Sulfate (Feosol) 324 mg PO MWF [facility] Last Admin: 02/05/17 09:39 Dose: 324 mg Fluticasone Propionate (Flonase) 0 actuation NS DAILY [facility] Last Admin: 02/06/17 10:50 Dose: 1 spray Hydralazine HCl (Apresoline) 100 mg PO TID [facility] Last Admin: 02/06/17 10:25 Dose: 100 mg Heparin Sodium/Dextrose (Heparin 25,000 Units/250ml In D5w) 25,000 units in 250 mls @ 11.703 mls/hr IV .[id number] JUAN MANUEL; 12 UNITS/KG/HR PRN Reason: Protocol Last Admin: 02/06/17 11:06 Dose: 16 units/kg/hr, 15.604 mls/hr Insulin Human Lispro (Humalog Low) 0 units SC ACHS [facility] PRN Reason: Protocol Last Admin: 02/06/17 07:30 Dose: Not Given Levothyroxine Sodium (Synthroid) 100 mcg PO DAILY [facility] Last Admin: 02/06/17 09:54 Dose: 100 mcg Metoprolol Succinate (Toprol Xl) 25 mg PO DAILY [facility] Last Admin: 02/06/17 09:51 Dose: 25 mg Morphine Sulfate (Morphine) 2 mg IVP Q4H PRN PRN Reason: Pain, moderate (4-7) Last Admin: 02/04/17 13:26 Dose: 2 mg Non-Formulary Medication (Cetirizine Hcl [Allergy Relief]) 10 mg PO DAILY [facility] Last Admin: 02/06/17 10:30 Dose: Not Given Non-Formulary Medication (Cholecalciferol (Vitd3)/Vit K2 [D3 + K2 Dots 1,000 Units Tab]) 1,000 units PO DAILY [facility] Last Admin: 02/06/17 10:31 Dose: Not Given Ondansetron HCl (Zofran Inj) 4 mg IVP Q4H PRN PRN Reason: Nausea/Vomiting Last Admin: 02/05/17 13:22 Dose: 4 mg Pantoprazole Sodium (Protonix Ec Tab) 40 mg PO 0600 [facility] Last Admin: 02/06/17 06:02 Dose: 40 mg Sodium Bicarbonate (Sodium Bicarbonate Tab) 650 mg PO Q6 [facility] Last Admin: 02/06/17 06:02 Dose: 650 mg - Labs Labs: 02/06/17 06:00 02/06/17 06:00 PT 11.4 Seconds (9.9-11.8) 02/06/17 06:00 INR 1.06 (0.93-1.08) 02/06/17 06:00 APTT 60.2 Seconds (23.7-30.8) H 02/06/17 06:00 - Constitutional Appears: Non-toxic, No Acute Distress - Head Exam Head Exam: NORMAL INSPECTION - Eye Exam Eye Exam: Normal appearance - ENT Exam ENT Exam: Mucous Membranes Moist - Respiratory Exam Respiratory Exam: NORMAL BREATHING PATTERN - Cardiovascular Exam Cardiovascular Exam: +S1, +S2 - GI/Abdominal Exam GI & Abdominal Exam: Soft - Neurological Exam Neurological Exam: Alert, Awake, Oriented x3 - Psychiatric Exam Psychiatric exam: Normal Mood - Skin Skin Exam: Dry Assessment and Plan - Assessment and Plan (Free Text) Plan: ARF/ CKD stage 5/Unstable Angina/ Hypertensive nephropathy/ Anemia of Renal Disease/ Secondary hyperparthyroidism cr is worse today, last hd was on sunday UOP is same per patient however I&Os not accurate. no signs of volume overload/ uremia/electrolyte issues cotninue oral bicarb Phos elevated: i have auryxia as allergic to sevelamer and calcium is >9 hence no phoslo. continue current bp meds no hd today, monitor labs tomorrow,. 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 d/w Dr Wilkinson
[2017-02-06] MEDS: Ferric Citrate 210 mg (AURYXIA) Tab. PO SCH ×2 (14:07→18:42)
[2017-02-06] MEDS ORDERED: Fluticasone Nasal 50 mcg/Spray NS STA (22:11)
[2017-02-07] MEDS: Heparin 25,000units in D5W 25,000 UNITS/250 ML BAG IV SCH (02:32)
[2017-02-07 04:02] VITALS: O2SAT 92
[2017-02-07] MEDS: Pantoprazole 40 mg EC Tab PO SCH (05:22)
[2017-02-07 06:27] VITALS: TEMP 99.1
[2017-02-07 06:52] LABS: BASO # 0.02 K/mm3 (0.0-2.0); BASO % 0.3 % (0.0-3.0); EOS # 0.2 (0.0-0.7); EOS % 3.4 % (1.5-5.0); GRAN # 4.19 (1.4-6.5); GRAN % 70.3 % (50.0-68.0); LYMPH # 0.7 (1.2-3.4); LYMPH % 10.9 % (22.0-35.0); MEAN CELL VOLUME 93.8 fl (80.0-105.0); MEAN CORPUSCULAR HEMOGLOBIN 31.6 pg (25.0-35.0); MEAN CORPUSCULAR HGB CONC 33.8 g/dl (31.0-37.0); MEAN PLATELET VOLUME 10.7 fl (7.0-11.0); MONO # 0.9 (0.1-0.6); MONO % 15.1 % (1.0-6.0); RED CELL DISTRIBUTION WIDTH 14.7 % (11.5-14.5)
[2017-02-07 07:04] LABS: ALB/GLOB RATIO 1.1 (1.1-1.8); BILIRUBIN,TOTAL 0.6 mg/dL (0.2-1.3); CALCIUM 8.8 mg/dL (8.4-10.5); MAGNESIUM 1.9 mg/dL (1.7-2.2); PHOSPHOROUS 6.5 mg/dL (2.5-4.5); POTASSIUM 4.9 mmol/L (3.6-5.0)
[2017-02-07 07:05] LABS: INR 1.06 (0.93-1.08); PARTIAL THROMBOPLASTIN TIME 52.4 Seconds (23.7-30.8)
[2017-02-07] MEDS ORDERED: Bisacodyl 5mg EC Tab PO ONE (07:35)
[2017-02-07] MEDS: Insulin Lispro (humaLOG) LOW Coverage SC SCH ×3 (08:47→18:16)
[2017-02-07] MEDS: Ferric Citrate 210 mg (AURYXIA) Tab. PO SCH ×3 (09:01→18:23)
--- NOTE | 2017-02-07 10:26 | PN ---
CARDIOLOGY FOLLOWUP DATE: 02/07/2017 SUBJECTIVE: The patient is without chest pain, without shortness of breath. PHYSICAL EXAMINATION: VITAL SIGNS: Blood pressure 147/81, heart rate in the 90s. NECK: Negative JVD. LUNGS: Without rales. HEART: S1, S2. EXTREMITIES: Without edema. LABORATORY DATA: Hemoglobin is 8.0. Chemistries; BUN and creatinine is 71 and 8.1. The potassium is 4.9. IMPRESSION: 1. Renal failure. 2. Diabetes mellitus. 3. Nonobstructive coronary artery disease. 4. Cardiac catheterization revealed borderline critical lesion. 5. Coronary artery disease. 6. Anemia. Given these findings, the patient needs to ambulate. We will discontinue telemetry today. From a cardiac perspective, the patient can be discharged for his trip back to [place]. Likely, he will need dialysis in [place]. Madi Mccoy MD
[2017-02-07] MEDS: Fluticasone Nasal 50 mcg/Spray NS SCH (10:27)
[2017-02-07] MEDS: Levothyroxine 100 MCG TAB PO SCH (10:36)
[2017-02-07] MEDS: Metoprolol Succinate 25 mg XL Tab PO SCH (10:37)
[2017-02-07] MEDS: [UNRECOGNIZED DRUG - REMARK] PO SCH (10:39)
[2017-02-07] MEDS: CHOLECALCIFEROL PO SCH (10:40)
[2017-02-07] MEDS: VIT K2 PO SCH (10:40)
[2017-02-07] MEDS: [UNRECOGNIZED DRUG - OTHER] PO SCH (10:40)
[2017-02-07 12:36] VITALS: RESP 20
[2017-02-07 18:25] VITALS: BP 156/88; PULSE 94
--- NOTE | 2017-02-07 20:59 | DS ---
HISTORY OF PRESENT ILLNESS: The patient was on a cruise ship, awaiting for this morning's labs to make a decision for going to do dialysis this morning or not. He is also constipated, which he did not tell anybody. We will give him a Dulcolax tablet. He did not want a suppository or an enema. Awaiting for physical therapy to walk him also and then if all these get taken care of, he will be discharged. PHYSICAL EXAMINATION: VITAL SIGNS: 99.1 temperature, 89 pulse, 147/81 blood pressure, 19 respiratory rate, 92% O2 sat on room air. HEENT: Head is atraumatic and normocephalic. HEART: His heart is regular rate. LUNGS: Decreased breath sounds, but clear. ABDOMEN: Soft, obese, nontender. EXTREMITIES: Trace edema. MEDICATIONS: He is going to go home on his Apresoline, Auryxia, Benadryl, Cardura, Catapres, cetirizine, multivitamin, iron, Flonase, Lipitor, Protonix, sodium bicarbonate, Synthroid, Toprol, Zofran, Zyloprim. LABORATORY DATA: This morning is 138 sodium, potassium 4.9. His BUN did go up to 71, creatinine went up to 8.1; I will see what Renal wants to do. His blood sugar is 115. Calcium is 8.8, phosphorus 6.5, total bilirubin is 0.6, AST is 49, ALT is 42, alkaline phosphatase 91, total protein is 6. CBC is pending. ASSESSMENT: 1. Non-ST elevation myocardial infarction. 2. End-stage renal disease. 3. Hypertension. 4. Congestive heart failure. 5. Anemia. PLAN: to discharge him for this afternoon. Hopefully, everything will be taken care of. Physical therapy will come in and walk him and do well, move his bowels and Renal will make a decision on dialysis or not. He is going to follow up with his renal doctor in [place] where he is from and he is from the cruise ship. Yobany Wilkinson DO ROHIT
--- NOTE | 2017-02-07 21:51 | CP.PCM.PN ---
Subjective - Date & Time of Evaluation Date of Evaluation: 02/07/17 Time of Evaluation: 11:00 Objective - Vital Signs/Intake and Output Vital Signs (last 24 hours): Temp Pulse Resp BP Pulse Ox 99.1 F 94 H 20 156/88 H 92 L 02/07/17 12:00 02/07/17 18:22 02/07/17 12:00 02/07/17 18:22 02/07/17 04:00 - Labs Labs: 02/07/17 06:45 02/07/17 06:45 PT 11.5 Seconds (9.9-11.8) 02/07/17 06:45 INR 1.06 (0.93-1.08) 02/07/17 06:45 APTT 52.4 Seconds (23.7-30.8) H 02/07/17 06:45
[2017-02-10] MEDS ORDERED: Darbepoetin Alfa 60 mcg/ml Inj SC SCH (10:00)
[2017-02-13] MEDS ORDERED: Darbepoetin Alfa 60 mcg/ml Inj SC SCH (10:00)
== END 2017-02-07 21:27 | disposition home or self-care (01) | DRG 280 ==
LOC: ED 08:34 → UNDOADMIN 11:05 → ERH 11:05 → CATH 11:32 → CCU 13:21 → 2RNO 02-06 11:41
PROVIDERS: ADMIT Family Medicine; ATTEND Family Medicine
PROC: 4A023N7 Measurement of Cardiac Sampling and Pressure, Left Heart, Percutaneous Approach (ICD-10-PCS; principal; 2017-02-03)
PROC: B2151ZZ Fluoroscopy of Left Heart using Low Osmolar Contrast (ICD-10-PCS; 2017-02-03)
PROC: B2111ZZ Fluoroscopy of Multiple Coronary Arteries using Low Osmolar Contrast (ICD-10-PCS; 2017-02-03)
PROC: B3101ZZ Fluoroscopy of Thoracic Aorta using Low Osmolar Contrast (ICD-10-PCS; 2017-02-03)
PROC: 5A1D70Z Performance of Urinary Filtration, Intermittent, Less than 6 Hours Per Day (ICD-10-PCS; 2017-02-07)
DX: I21.4 Non-ST elevation (NSTEMI) myocardial infarction (principal); N18.6 End stage renal disease; N17.9 Acute kidney failure, unspecified; T82.855A Stenosis of coronary artery stent, initial encounter; I13.2 Hypertensive heart and chronic kidney disease with heart failure and with stage 5 chronic kidney disease, or end stage renal disease; E87.2 Acidosis; N25.81 Secondary hyperparathyroidism of renal origin; I50.9 Heart failure, unspecified; I25.110 Atherosclerotic heart disease of native coronary artery with unstable angina pectoris; E11.22 Type 2 diabetes mellitus with diabetic chronic kidney disease; D63.1 Anemia in chronic kidney disease; F17.200 Nicotine dependence, unspecified, uncomplicated; E78.00 Pure hypercholesterolemia, unspecified; Y83.1 Surgical operation with implant of artificial internal device as the cause of abnormal reaction of the patient, or of later complication, without mention of misadventure at the time of the procedure; Z99.2 Dependence on renal dialysis; Z79.84 Long term (current) use of oral hypoglycemic drugs